=== PATIENT | male | born 1975 | race Caucasian/White ===

== ENCOUNTER 2018-05-26 09:03 | Observation (INO) | payer BC, MEDICARE ==
[2018-05-26] VITALS (10 sets, daily range): BP systolic 128–161; BP diastolic 81–103
[~2018-05-26] VITALS: Ht 167.6 cm; Wt 95.3 kg
[~2018-05-26 09:03] MED LIST: ADAL40PE SQ; ASPI-482 PO; CHOL500016 PO; ISOM1CAP9 PO; IV RINGERS,LACTATED 1000ML 1,000 ML IV SCH; LEVO40CA PO; LIDOCAINE 1% PF 2 ML VIAL. ID PRN; MORP30CA13 PO; MULT-208 PO; OLAN5TAB9 PO; OMEP40CA5 PO; ONDANSETRON PF 4 MG/2 ML VIAL. IV PRN; PROCHLORPERAZINE 10 MG/2 ML VIAL. IV PRN; SERT100T8 PO; TOPI50TA8 PO; fentaNYL PF VIAL 100 MCG/2 ML VIAL IV PRN
[2018-05-26] MEDS ORDERED: DEXAMETHASONE SOD PHOS 20 MG/5 ML VIAL. ONE (10:09)
[2018-05-26] MEDS ORDERED: FAMOTIDINE 20 MG/2 ML VIAL ONE (10:09)
[2018-05-26] MEDS ORDERED: ONDANSETRON PF 4 MG/2 ML VIAL. ONE (10:09)
[2018-05-26] MEDS ORDERED: LIDOCAINE 2% PF Vial for OR 5 ML VIAL. ONE (10:09)
[2018-05-26] MEDS ORDERED: PROPOFOL 20 ML IV ONE (10:09)
[2018-05-26] MEDS ORDERED: MIDAZOLAM HCL/PF 2 MG/2 ML VIAL. ONE (10:11)
[2018-05-26] MEDS ORDERED: ROCURONIUM 50 MG/5 ML VIAL. ONE (10:11)
[2018-05-26] MEDS ORDERED: fentaNYL PF VIAL 100 MCG/2 ML VIAL ONE ×4 (10:11→14:09)
[2018-05-26] MEDS ORDERED: IOHEXOL 300 MG/ML 100ML VIAL. ONE (10:57)
[2018-05-26] MEDS ORDERED: SURGICEL HEMOSTAT 4X8 EACH. ONE ×2 (10:57→12:00)
[2018-05-26] MEDS ORDERED: BUPIVACAINE-EPI 0.5%-1:200000 50 ML VIAL. ONE (10:58)
[2018-05-26] MEDS ORDERED: BUPIVAC MPF-EPI 0.5%-1:200000 30 ML VIAL. INJ ONE (11:45)
[2018-05-26] MEDS ORDERED: SURGICEL HEMOSTAT 4X8 EACH. TP ONE ×3 (11:50→12:45)
--- NOTE | 2018-05-26 12:32 | RAD ---
Fluoroscopic intraoperative cholangiogram: 2017 CLINICAL INDICATION: Intraoperative cholangiogram, cholecystectomy. COMPARISON: Ultrasound 09/25/2017 Findings/technique: Total fluoroscopy time 28 seconds. Total fluoroscopic images 3. A radiologist not present for the examination. There is opacification of the central intra and extrahepatic biliary system as well as the 2nd portion of the duodenum without evidence of biliary ductal dilatation or intraluminal filling defect to suggest choledocholithiasis. IMPRESSION: Intraoperative cholangiogram, as detailed. Electronically signed by: Cornel Nesbitt MD (05/26/2018 12:29 PM) [id number]
[2018-05-26] MEDS ORDERED: NEOSTIGMINE METHYLSULFATE 5 MG/5 ML SYRINGE. ONE (12:38)
[2018-05-26] MEDS ORDERED: GLYCOPYRROLATE 1 MG/5 ML VIAL. ONE (12:38)
[2018-05-26] MEDS ORDERED: DESFLURANE 61 TO 120 MINUTES IH ONE (12:52)
[2018-05-26] MEDS: IV 1/2 NORMAL SALINE 1,000 ML IV SCH ×2 (13:04→20:09)
[2018-05-26] MEDS ORDERED: oxyCODONE/APAP 5/325 1 TAB TABLET PO PRN (13:15)
[2018-05-26] MEDS ORDERED: DEXTROSE 50% 25 GM / 50ML DISP.SYRIN. IV PRN (13:15)
[2018-05-26] MEDS ORDERED: 0.9 % SODIUM CHLORIDE 10 ML DISP.SYRIN. IV PRN (13:15)
[2018-05-26] MEDS ORDERED: ONDANSETRON PF 4 MG/2 ML VIAL. IV PRN (13:15)
[2018-05-26] MEDS ORDERED: fentaNYL PF VIAL 100 MCG/2 ML VIAL IV PRN ×2 (13:15)
--- NOTE | 2018-05-26 13:16 | PDOC4 ---
Operative Note Operative Note Operative Note: Preoperative Diagnosis: Biliary dyskinesia Postoperative Diagnosis: Same Procedure: Laparoscopic cholecystectomy with intraoperative cholangiogram Surgeons: Karson Anesthesia: Gen. Estimated Blood Loss: 100 mL Specimen: Gallbladder to pathology Drains: None Complications: None Indications: The patient is a 43-year-old male who underwent evaluation due to chronic episodes of abdominal pain and pancreatitis. His evaluation included a PIPIDA scan which showed prompt symptom reproduction with Kinevac injection suggestive of biliary dyskinesia. Surgical treatment was offered by means of a laparoscopic cholecystectomy. The risks of surgery were discussed which include bleeding, infection, bile duct injury, bile leak, pain, the potential for additional surgeries or procedures. The patient understands and would like to proceed. Description: The patient was taken to the operating room and laid supine on the operating table. General anesthesia was performed. The abdomen was prepped with ChloraPrep and draped in a standard surgical fashion. A small incision was made in the right upper quadrant through which a visualized 5 mm trocar was inserted. A pneumoperitoneum was created and the laparoscope was introduced. Initial inspection showed no visceral injury or bleeding. The abdominal wall showed minimal adhesions. Another 5 mm trocar was placed near the umbilicus and the laparoscope was relocated to the port. In the upper midabdomen an 11mm trocar was inserted and in the right upper one 2.3 mm mini lap grasper was inserted. The gallbladder was retracted cephalad. The patient had very prominent fatty infiltration of the liver leading to a nearly intrahepatic effect on the gallbladder. In addition along the left border of the gallbladder there appeared to be a liver lesion consistent with a hemangioma that had been seen previously on MRI. This made however exposure difficult along the inferior aspect. Another 5 mm trocar was placed to help with retraction and improve exposure. The cystic duct was dissected free from surrounding tissues. One clip was placed on the duct near the gallbladder junction. An opening was made in the duct and a cholangiocatheter placed within and secured with a clip. Using contrast dye and fluoroscopy an intraoperative cholangiogram was performed that appeared unremarkable. The clip and catheter were then withdrawn. Three clips were placed on the cystic duct and it was divided. We began slowly mobilizing the gallbladder from the liver and it was quite friable. We searched for a well-defined cystic artery however none was clearly identified. He seemed to instead have multiple small vessels feeding the gallbladder which were easily cauterized. The gallbladder was mobilized away from the liver with cautery. A Surgicel pack was placed on the gallbladder fossa to assist with any oozing. The gallbladder was then placed in an endoscopic bag and extracted at the superior trocar site. The fascia there was closed with an 0 Vicryl suture. All blood and irrigation fluid was suctioned and hemostasis was good. The remaining ports were removed and the pneumoperitoneum was relieved. The skin incisions were closed using 4- 0 Monocryl suture. Steri-Strips and dressings were then applied. The patient tolerated the procedure well and was sent to the recovery room in stable condition. At the end of the case all counts were correct. MARIAMA ANTUNEZ MD May 26, 2018 13:16
[2018-05-26] MEDS ORDERED: [UNRECOGNIZED DRUG - OTHER] PO PRN (13:30)
[2018-05-26] MEDS ORDERED: DICHLPHN PO PRN (13:30)
[2018-05-26] MEDS ORDERED: ISOMETHEPT PO PRN (13:30)
[2018-05-26] MEDS ORDERED: ACETAMINOP PO PRN (13:30)
[2018-05-26] MEDS ORDERED: OLANZapine 5 MG TABLET PO SCH ×2 (13:45→21:00)
[2018-05-26] MEDS: fentaNYL PF VIAL 100 MCG/2 ML VIAL IV PRN ×4 (13:55→14:49)
[2018-05-26] MEDS: CHOLECALCIFEROL (VITAMIN D3) 5,000 UNIT CAPSULE PO SCH (14:00)
[2018-05-26] MEDS: MULTIVITAMIN with MINERAL TABLET. PO SCH (14:00)
[2018-05-26] MEDS ORDERED: TOPIRAMATE 25 MG TABLET. PO SCH (14:00)
[2018-05-26] MEDS: PANTOPRAZOLE 40 MG TABLET.DR. PO SCH (15:28)
[2018-05-26] MEDS: KETOROLAC 15 MG/ML VIAL. IV PRN (20:01)
[2018-05-26] MEDS: TOPIRAMATE 25 MG TABLET. PO SCH (20:02)
[2018-05-26] MEDS ORDERED: SERTRALINE 50 MG TABLET. PO SCH (21:00)
[2018-05-26] MEDS: oxyCODONE/APAP 5/325 1 TAB TABLET PO PRN (23:06)
[2018-05-27 03:00] VITALS: BP 123/76
[2018-05-27] MEDS: oxyCODONE/APAP 5/325 1 TAB TABLET PO PRN ×3 (03:48→12:13)
[2018-05-27 03:50] LABS: BASO # 0.1 x10^3/uL (0.0-0.2); BASO % 1 % (0-3); EOS % 0 % (0-3); HEMATOCRIT 40.4 % (39.0-53.0); HEMOGLOBIN 13.7 g/dL (13.0-17.5); LYMPH # 2.7 x10^3/uL (1.0-4.8); LYMPH % 12 % (24-48); MEAN CORPUSCULAR HEMOGLOBIN 32 pg (25-35); MEAN CORPUSCULAR HGB CONC 34 g/dL (31-37); MEAN CORPUSCULAR VOLUME 93 fL (79-100); MONO # 0.9 x10^3/uL (0.0-1.1); MONO % 4 % (0-9); NEUT # 18.5 x10^3uL (1.8-7.7); NEUT % 83 % (31-73); PLATELET COUNT 267 x10^3/uL (140-400); RED BLOOD COUNT 4.35 x10^6/uL (4.30-5.70); RED CELL DISTRIBUTION WIDTH 14.2 % (11.5-14.5); WHITE BLOOD COUNT 22.2 x10^3/uL (4.0-11.0)
[2018-05-27 04:43] LABS: % BANDS 4 % (0-9); % LYMPHS 10 % (24-48); % MONOS 4 % (0-10); % SEGS 82 % (35-66); PLT ESTIMATE ADEQUATE (ADEQUATE)
[2018-05-27 07:00] VITALS: BP 103/64
[2018-05-27] MEDS: KETOROLAC 15 MG/ML VIAL. IV PRN (07:23)
--- NOTE | 2018-05-27 08:07 | PDOC ---
SAJAN PEDROZA [employer] ROOM OPERATOR 05/27/18 0807: SURGICAL PROGRESS NOTE Subjective tolerated breakfast not ambulating much yet + urination incisional pain Vital Signs Vital Signs Date Time Temp Pulse Resp B/P (MAP) Pulse Ox O2 Delivery O2 Flow Rate FiO2 05/27/18 05:01 Nasal Cannula 2.0 05/27/18 03:00 97.9 113 18 123/76 (92) 97 97.9 I&O Intake and Output 05/27/18 07:00 Intake Total 1550 ml Output Total 2650 ml Balance -1100 ml Intake Oral 0 ml IV Total 1550 ml Output Urine Total 2550 ml Estimated Blood Loss 100 ml General: Alert, Oriented X3, Cooperative, No acute distress Abdomen: Soft, Other (dressings dry ) Labs Laboratory Tests Test 05/27/18 03:15 White Blood Count 22.2 x10^3/uL (4.0-11.0) Red Blood Count 4.35 x10^6/uL (4.30-5.70) Hemoglobin 13.7 g/dL (13.0-17.5) Hematocrit 40.4 % (39.0-53.0) Mean Corpuscular Volume 93 fL (79-100) Mean Corpuscular Hemoglobin 32 pg (25-35) Mean Corpuscular Hemoglobin Concent 34 g/dL (31-37) Red Cell Distribution Width 14.2 % (11.5-14.5) Platelet Count 267 x10^3/uL (140-400) Neutrophils (%) (Auto) 83 % (31-73) Lymphocytes (%) (Auto) 12 % (24-48) Monocytes (%) (Auto) 4 % (0-9) Eosinophils (%) (Auto) 0 % (0-3) Basophils (%) (Auto) 1 % (0-3) Neutrophils # (Auto) 18.5 x10^3uL (1.8-7.7) Lymphocytes # (Auto) 2.7 x10^3/uL (1.0-4.8) Monocytes # (Auto) 0.9 x10^3/uL (0.0-1.1) Eosinophils # (Auto) 0.0 x10^3/uL (0.0-0.7) Basophils # (Auto) 0.1 x10^3/uL (0.0-0.2) Segmented Neutrophils % 82 % (35-66) Band Neutrophils % 4 % (0-9) Lymphocytes % 10 % (24-48) Monocytes % 4 % (0-10) Platelet Estimate Adequate (ADEQUATE) Laboratory Tests Test 05/27/18 03:15 White Blood Count 22.2 x10^3/uL (4.0-11.0) Red Blood Count 4.35 x10^6/uL (4.30-5.70) Hemoglobin 13.7 g/dL (13.0-17.5) Hematocrit 40.4 % (39.0-53.0) Mean Corpuscular Volume 93 fL (79-100) Mean Corpuscular Hemoglobin 32 pg (25-35) Mean Corpuscular Hemoglobin Concent 34 g/dL (31-37) Red Cell Distribution Width 14.2 % (11.5-14.5) Platelet Count 267 x10^3/uL (140-400) Neutrophils (%) (Auto) 83 % (31-73) Lymphocytes (%) (Auto) 12 % (24-48) Monocytes (%) (Auto) 4 % (0-9) Eosinophils (%) (Auto) 0 % (0-3) Basophils (%) (Auto) 1 % (0-3) Neutrophils # (Auto) 18.5 x10^3uL (1.8-7.7) Lymphocytes # (Auto) 2.7 x10^3/uL (1.0-4.8) Monocytes # (Auto) 0.9 x10^3/uL (0.0-1.1) Eosinophils # (Auto) 0.0 x10^3/uL (0.0-0.7) Basophils # (Auto) 0.1 x10^3/uL (0.0-0.2) Segmented Neutrophils % 82 % (35-66) Band Neutrophils % 4 % (0-9) Lymphocytes % 10 % (24-48) Monocytes % 4 % (0-10) Platelet Estimate Adequate (ADEQUATE) Problem List s/p lap neri increase activity plan dc after lunch MARIAMA ANTUNEZ MD 05/27/18 0942: SURGICAL PROGRESS NOTE Assessment/Plan Agree with above, Hb stable, WBC likely reactive NICKELSAJAN L [employer] ROOM OPERATOR May 27, 2018 08:07 MARIAMA ANTUNEZ MD May 27, 2018 09:42
[2018-05-27] MEDS ORDERED: OXYC1TAB7 PO (08:09)
--- NOTE | 2018-05-27 08:11 | DISCH ---
DISCHARGE INSTRUCTIONS Condition on Discharge Condition on Discharge: Stable Activity After Discharge Activity Instructions for Disc: Activity as tolerated Lifting Instructions after Dis: No heavy lifting (x 2 weeks, nothing over 20 lbs), No pulling or pushing Driving Instructions after Dis: Do not drive today Weight Bearing Status after Di: No restrictions Diet after Discharge Diet after Discharge: Low Fat Diet Texture: Regular Liquid Texture: Thin Liquid Wound Incision Care Wound/Incision Care: May get incision wet, No wound care needed Contacting the DRYuan after DC Call your doctor for: Concerns you may have Follow-Up Follow up with: Dr Ty 2 weeks, call to schedule [phone] SAJAN PEDROZA APRN May 27, 2018 08:11
--- NOTE | 2018-05-27 08:13 | PDOC3 ---
Discharge Summary Visit Information Date of Admission: May 26, 2018 Date of Discharge: May 27, 2018 Admitting Diagnosis: Biliary dyskinesia Final Diagnosis Biliary dyskinesia Brief Hospital Course Allergies Allergies Coded Allergies Type Severity Reaction Last Updated Verified cephalexin Allergy Intermediate Rash 05/23/18 Yes codeine Adverse Reaction Unknown MIGRAINE HEADACHE (TYLENOL W/ CODEINE) Yes morphine Adverse Reaction Unknown NAUSEA/VOMITING 05/23/18 Yes Vital Signs Vital Signs Date Time Temp Pulse Resp B/P (MAP) Pulse Ox O2 Delivery O2 Flow Rate FiO2 05/27/18 05:01 Nasal Cannula 2.0 05/27/18 03:00 97.9 113 18 123/76 (92) 97 97.9 Lab Results Laboratory Tests Test 05/27/18 03:15 White Blood Count 22.2 x10^3/uL (4.0-11.0) Red Blood Count 4.35 x10^6/uL (4.30-5.70) Hemoglobin 13.7 g/dL (13.0-17.5) Hematocrit 40.4 % (39.0-53.0) Mean Corpuscular Volume 93 fL (79-100) Mean Corpuscular Hemoglobin 32 pg (25-35) Mean Corpuscular Hemoglobin Concent 34 g/dL (31-37) Red Cell Distribution Width 14.2 % (11.5-14.5) Platelet Count 267 x10^3/uL (140-400) Neutrophils (%) (Auto) 83 % (31-73) Lymphocytes (%) (Auto) 12 % (24-48) Monocytes (%) (Auto) 4 % (0-9) Eosinophils (%) (Auto) 0 % (0-3) Basophils (%) (Auto) 1 % (0-3) Neutrophils # (Auto) 18.5 x10^3uL (1.8-7.7) Lymphocytes # (Auto) 2.7 x10^3/uL (1.0-4.8) Monocytes # (Auto) 0.9 x10^3/uL (0.0-1.1) Eosinophils # (Auto) 0.0 x10^3/uL (0.0-0.7) Basophils # (Auto) 0.1 x10^3/uL (0.0-0.2) Segmented Neutrophils % 82 % (35-66) Band Neutrophils % 4 % (0-9) Lymphocytes % 10 % (24-48) Monocytes % 4 % (0-10) Platelet Estimate Adequate (ADEQUATE) Laboratory Tests Test 05/27/18 03:15 White Blood Count 22.2 x10^3/uL (4.0-11.0) Red Blood Count 4.35 x10^6/uL (4.30-5.70) Hemoglobin 13.7 g/dL (13.0-17.5) Hematocrit 40.4 % (39.0-53.0) Mean Corpuscular Volume 93 fL (79-100) Mean Corpuscular Hemoglobin 32 pg (25-35) Mean Corpuscular Hemoglobin Concent 34 g/dL (31-37) Red Cell Distribution Width 14.2 % (11.5-14.5) Platelet Count 267 x10^3/uL (140-400) Neutrophils (%) (Auto) 83 % (31-73) Lymphocytes (%) (Auto) 12 % (24-48) Monocytes (%) (Auto) 4 % (0-9) Eosinophils (%) (Auto) 0 % (0-3) Basophils (%) (Auto) 1 % (0-3) Neutrophils # (Auto) 18.5 x10^3uL (1.8-7.7) Lymphocytes # (Auto) 2.7 x10^3/uL (1.0-4.8) Monocytes # (Auto) 0.9 x10^3/uL (0.0-1.1) Eosinophils # (Auto) 0.0 x10^3/uL (0.0-0.7) Basophils # (Auto) 0.1 x10^3/uL (0.0-0.2) Segmented Neutrophils % 82 % (35-66) Band Neutrophils % 4 % (0-9) Lymphocytes % 10 % (24-48) Monocytes % 4 % (0-10) Platelet Estimate Adequate (ADEQUATE) Brief Hospital Course Mr. Dorantes is a 43 old male who presented with Biliary dyskinesia. Underwent laparoscopic cholecystectomy, postoperatively tolerating diet, ambulating, and pain managed. Ready for discharge home Discharge Information Condition at Discharge: Stable Follow Up: Weeks (2) Disposition/Orders: D/C to Home Scheduled Adalimumab (Humira) 40 Mg/0.8 Ml Pen.ij.kit, 40 MG SQ Q2WKS, (Reported) Entered as Reported by: Herman Leonard RN on 09/22/172005 Last Taken: Unknown Dose on 05/24/18 Last Action: HELD on 05/26/181316 by MARIAMA ANTUNEZ Aspirin (Aspir 81) 81 Mg Tablet.dr, 1 TAB PO DAILY, #30 Ref 5 (Reported) Entered as Reported by: LUIS MONTOYA on 07/16/14 1033 Last Taken: Unknown Dose on 05/19/18 Last Action: HELD on 05/26/181316 by MARIAMA ANTUNEZ Cholecalciferol (Vitamin D3) (Vitamin D3) 5,000 Unit Tablet, 1 TAB PO DAILY, #30 (Reported) Entered as Reported by: LUIS MONTOYA on 07/16/14 103 Last Taken: Unknown Dose on 05/25/18 Last Action: Converted on 05/26/181316 by MARIAMA ANTUNEZ Multivitamin (Multi-Day Vitamins) 1 Each Tablet, 1 TAB PO DAILY, #30 (Reported) Entered as Reported by: LUIS MONTOYA on 07/16/14 1031 Last Taken: Unknown Dose on 05/23/18 Last Action: Converted on 05/26/181316 by MARIAMA ANTUNEZ Olanzapine (Olanzapine) 5 Mg Tablet, 15 MG PO DAILY for BIPOLAR, (Reported) Entered as Reported by: LUIS MONTOYA on 07/16/14 1034 Last Taken: Unknown Dose on 05/25/18 Last Action: Converted on 05/26/181316 by MARIAMA ANTUNEZ Omeprazole (Omeprazole) 40 Mg Capsule.dr, 1 CAP PO DAILY, #30 Ref 3 (Reported) Entered as Reported by: LUIS MONTOYA on 07/16/14 1032 Last Taken: Unknown Dose on 05/25/18 Last Action: Converted on 05/26/181316 by MARIAMA ANTUNEZ Sertraline Hcl (Sertraline Hcl) 100 Mg Tablet, 100 MG PO QHS for ANTI-DEPRESSANT , Ref 0 (Reported) Entered as Reported by: Herman Leonard RN on 09/22/172005 Last Taken: Unknown Dose on 05/25/18 Last Action: Converted on 05/26/181316 by MARIAMA ANTUNEZ Topiramate (Topiramate) 50 Mg Tablet, 1 TAB PO DAILY for BIPOLAR, #60 Ref 1 ( Reported) Entered as Reported by: LUIS CASTROLLISTER on 07/16/14 1033 Last Taken: Unknown Dose on 05/25/18 Last Action: Converted on 05/26/181316 by MARIAMA ANTUNEZ Scheduled PRN Isomethept/Dichlphn/Acetaminop (Dxpcsshguf-Vvrxekchfd-Rxrkiyxc) 1 Each Capsule, 2 EACH PO PRN DAILY PRN for MIGRAINE HEADACHE, (Reported) Entered as Reported by: Herman Leonard RN on 09/22/172005 Last Taken: Unknown Dose on Unknown Date & Time Last Action: Converted on 05/26/181316 by MARIAMA ANTUNEZ Oxycodone Hcl/Acetaminophen (Oxycodone-Acetaminophen 5-325) 1 Each Tablet, 1 TAB PO PRN Q4HRS PRN for MILD PAIN, 1ST CHOICE, #30 Ref 0 Prescribed by: Sajan Gardiner on 05/27/18 0809 SAJAN GARDINER APRN May 27, 2018 08:13 MARIAMA ANTUNEZ MD May 27, 2018 09:42
[2018-05-27] MEDS: CHOLECALCIFEROL (VITAMIN D3) 5,000 UNIT CAPSULE PO SCH (08:57)
[2018-05-27] MEDS: TOPIRAMATE 25 MG TABLET. PO SCH (08:57)
[2018-05-27] MEDS: MULTIVITAMIN with MINERAL TABLET. PO SCH (08:57)
[2018-05-27] MEDS: PANTOPRAZOLE 40 MG TABLET.DR. PO SCH (08:58)
[2018-05-27 11:00] VITALS: BP 117/63
--- NOTE | 2018-05-27 18:07 | PATHOLOGY ---
[facility] Accession Number: [id number] . 01 Material submitted: . GALLBLADDER . 01 Clinical history: . Biliary dyskinesia . 02 Diagnosis: Gallbladder, laparoscopic cholecystectomy: - Chronic cholecystitis. ([facility]; 05/27/2018) QMS/05/27/2018 . 02 Comment: There are no calculi identified within the gallbladder lumen or specimen container. There is no evidence of malignancy. ([facility]; 05/27/2018) . 02 Electronically signed: . Madi Sánchez MD, Pathologist NPI- [id number] . 01 Gross description: . The specimen is received in formalin, labeled "Farhad DorantesGabrieleGeoff, gallbladder", is an intact gallbladder measuring 6.0 x 2.0 x 1.0 cm with wrinkled, diaz-purple serosa. The lumen is filled with yellow-diaz viscous bile, and no discrete calculi are identified. The mucosa is diaz-brown granular and the wall measures up to 0.1 cm thick. No discrete masses are identified. [employer] tissue is submitted in A1. ([facility]; 05/26/2018) SHS/SHS . 02 Pathologist provided ICD-10: K81.1 . 02 CPT . 323348 Specimen Comment: A courtesy copy of this report has been sent to Specimen Comment: [phone], . Specimen Comment: Report sent to / DR ESCOBEDO Performed at: 01 [facility] [address], [place] [id number] MD Rodrick Drew MD Phone: [phone] Performed at: 02 [facility] [address] [place], [place] [id number] MD Madi Sánchez MD Phone: [phone]
== END 2018-05-27 13:00 | disposition home or self-care (01) ==
LOC: SURG 09:03 → OBSVTOIN 13:33 → INTOOBSV 13:33 → 4 NORTH 13:33 → UNDODISOB 05-27 13:00
PROVIDERS: ADMIT Surgery; ATTEND Surgery
DX: K82.8 Other specified diseases of gallbladder (principal); K76.0 Fatty (change of) liver, not elsewhere classified; Z88.8 Allergy status to other drugs, medicaments and biological substances
CPT/HCPCS: 36415; 47563; 74300; 85007; 85025; 88304; 96374; 96375; 96376; A7015; G0378; G0379; J1100; J1885; J1956; J2001; J2250; J2405; J2704; J2710; J3010; J3490; J7030; J7120; Q9967

== ENCOUNTER 2018-11-14 18:57 | Emergency (ER) | payer BC, MEDICARE ==
[~2018-11-14] VITALS: Ht 167.6 cm; Wt 87.5 kg
[~2018-11-14 18:57] MED LIST changes: -IV RINGERS,LACTATED 1000ML 1,000 ML IV SCH; -LIDOCAINE 1% PF 2 ML VIAL. ID PRN; -ONDANSETRON PF 4 MG/2 ML VIAL. IV PRN; +OXYC1TAB7 PO; -PROCHLORPERAZINE 10 MG/2 ML VIAL. IV PRN; -fentaNYL PF VIAL 100 MCG/2 ML VIAL IV PRN
[2018-11-14 19:16] VITALS: BP 107/58
[2018-11-14] MEDS ORDERED: IV NORMAL SALINE 1000ML BAG 1,000 ML IV SCH (19:26)
[2018-11-14 19:38] LABS: BILIRUBIN,URINE NEGATIVE (NEG); CLARITY,URINE CLEAR; COLOR,URINE YELLOW; NITRITE,URINE NEGATIVE (NEG); PH,URINE 5.5; PROTEIN,URINE NEGATIVE (NEG-TRACE)
[2018-11-14 19:44] LABS: BARBITURATES NEG (NEG); BENZODIAZEPINES NEG (NEG); CANNABINOIDS NEG (NEG); COCAINE NEG (NEG); METHADONE NEG (NEG); OPIATES NEG (NEG); PHENCYCLIDINE NEG (NEG)
[2018-11-14 19:48] LABS: AMPHETAMINE/METHAMPHETAMINE NEG (NEG)
[2018-11-14 19:50] LABS: GRANULAR CASTS,URINE OCCASIONAL /HPF; HYALINE CASTS, URINE MODERATE /HPF; SQUAMOUS EPITHELIAL CELL,UR FEW /LPF
--- NOTE | 2018-11-14 19:50 | PHYS DOC ---
Past Medical History Past Medical History: Diabetes-Type II, Pancreatitis Additional Past Medical Histor: Chandrakant Past Surgical History: Appendectomy, Cholecystectomy Additional Past Surgical Histo: right wrist surg, left knee surg with metal Adult General Chief Complaint Chief Complaint: ABDOMINAL PAIN [facility] HPI Patient is a 43 year old male who presents with complaining of abdominal pain. Patient states he has had history of pancreatitis with 4 other episodes of pancreatitis and thinks he has another episode of pancreatitis. Patient complaining of left lower quadrant sharp pain as a constant pain for the last 10 days that gradually getting worse. Patient said the pain was 7 and increased to 10 over 10 today. Patient complaining of 3 episodes of nonbloody diarrhea today and 4 episodes of diarrhea yesterday. Patient complaining of anorexia without fever and chills, urinary symptoms, chest pain, shortness of breath, nausea and vomiting. Patient complaining of generalized weakness and dizziness with standin g up. Patient states he didn't take any pain medication for the last 10 days. Review of Systems Review of Systems Constitutional: Denies fever or chills [] Eyes: Denies change in visual acuity, redness, or eye pain [] HENT: Denies nasal congestion or sore throat [] Respiratory: Denies cough or shortness of breath [] Cardiovascular: No additional information not addressed in HPI [] GI: Reports abdominal pain, diarrhea, denies nausea and vomiting [] : Denies dysuria or hematuria [] Musculoskeletal: Denies back pain or joint pain [] Integument: Denies rash or skin lesions [] Neurologic: Denies headache, focal weakness or sensory changes [] Endocrine: Denies polyuria or polydipsia [] All other systems were reviewed and found to be within normal limits, except as documented in this note. Current Medications Current Medications Current Medications Medications (Trade) Dose Ordered Sig/Jutsa Start Time Stop Time Status Last Admin Dose Admin Ketorolac Tromethamine (Toradol 30mg Vial) 30 mg 1X ONCE 11/14/18 20:00 11/14/18 20:01 DC 11/14/18 19:57 30 MG Sodium Chloride 1,000 ml @ 1,000 mls/hr Q1H 11/14/18 19:26 11/14/18 20:25 DC 11/14/18 19:57 1,000 MLS/HR Allergies Allergies Allergies Coded Allergies Type Severity Reaction Last Updated Verified cephalexin Allergy Intermediate Rash 05/23/18 Yes codeine Adverse Reaction Unknown MIGRAINE HEADACHE (TYLENOL W/ CODEINE) 05/23/18 Yes morphine Adverse Reaction Unknown NAUSEA/VOMITING 05/23/18 Yes Physical Exam Physical Exam Constitutional: Well nourished, mild distress, non-toxic appearance. [] HENT: Normocephalic, atraumatic, oropharynx moist. Eyes: PERRLA, EOMI, conjunctiva normal, no discharge. [] Neck: Normal range of motion, no tenderness, supple, no stridor. [] Cardiovascular:Heart rate regular rhythm, no murmur [] Lungs & Thorax: Bilateral breath sounds clear to auscultation [] Abdomen: Bowel sounds normal, soft, no tenderness, no masses, no pulsatile masses. [] Skin: Warm, dry, no erythema, no rash. [] Back: No tenderness, no CVA tenderness. [] Extremities: No tenderness, no cyanosis, no clubbing, ROM intact, no edema. [] Neurologic: Alert and oriented X 3, normal motor function, normal sensory function, no focal deficits noted. [] Psychologic: Affect normal, judgement normal, mood normal. [] Current Patient Data Vital Signs Vital Signs Date Time Temp Pulse Resp B/P (MAP) Pulse Ox O2 Delivery O2 Flow Rate FiO2 11/14/18 19:16 98.2 92 20 107/58 (74) 98 Room Air 98.2 Lab Values Laboratory Tests Test 11/14/18 19:12 11/14/18 20:30 Urine Collection Type Unknown Urine Color Yellow Urine Clarity Clear Urine pH 5.5 Urine Specific [place] 1.015 Urine Protein Negative mg/dL (NEG-TRACE) Urine Glucose (UA) 500 mg/dL (NEG) Urine Ketones (Stick) Negative mg/dL (NEG) Urine Blood Negative (NEG) Urine Nitrite Negative (NEG) Urine Bilirubin Negative (NEG) Urine Urobilinogen Dipstick 1.0 mg/dL (0.2 mg/dL) Urine Leukocyte Esterase Negative (NEG) Urine RBC 1-2 /HPF (0-2) Urine WBC 1-4 /HPF (0-4) Urine Squamous Epithelial Cells Few /LPF Urine Transitional Epithelial Cells Few /LPF Urine Bacteria 0 /HPF (0-FEW) Urine Hyaline Casts Moderate /HPF Urine Granular Casts Occasional /HPF Urine Mucus Slight /LPF Urine Opiates Screen Neg (NEG) Urine Methadone Screen Neg (NEG) Urine Barbiturates Neg (NEG) Urine Phencyclidine Screen Neg (NEG) Urine Amphetamine/Methamphetamine Neg (NEG) Urine Benzodiazepines Screen Neg (NEG) Urine Cocaine Screen Neg (NEG) Urine Cannabinoids Screen Neg (NEG) Urine Ethyl Alcohol Neg (NEG) White Blood Count 13.9 x10^3/uL (4.0-11.0) H Red Blood Count 3.90 x10^6/uL (4.30-5.70) L Hemoglobin 11.9 g/dL (13.0-17.5) L Hematocrit 36.4 % (39.0-53.0) L Mean Corpuscular Volume 93 fL (79-100) Mean Corpuscular Hemoglobin 31 pg (25-35) Mean Corpuscular Hemoglobin Concent 33 g/dL (31-37) Red Cell Distribution Width 13.4 % (11.5-14.5) Platelet Count 218 x10^3/uL (140-400) Neutrophils (%) (Auto) 43 % (31-73) Lymphocytes (%) (Auto) 45 % (24-48) Monocytes (%) (Auto) 8 % (0-9) Eosinophils (%) (Auto) 3 % (0-3) Basophils (%) (Auto) 1 % (0-3) Neutrophils # (Auto) 6.0 x10^3uL (1.8-7.7) Lymphocytes # (Auto) 6.2 x10^3/uL (1.0-4.8) H Monocytes # (Auto) 1.1 x10^3/uL (0.0-1.1) Eosinophils # (Auto) 0.4 x10^3/uL (0.0-0.7) Basophils # (Auto) 0.1 x10^3/uL (0.0-0.2) Sodium Level 140 mmol/L (136-145) Potassium Level 4.1 mmol/L (3.5-5.1) Chloride Level 107 mmol/L (98-107) Carbon Dioxide Level 21 mmol/L (21-32) Anion Gap 12 (6-14) Blood Urea Nitrogen 22 mg/dL (8-26) Creatinine 1.7 mg/dL (0.7-1.3) H Estimated GFR (Cockcroft-Gault) 43.8 BUN/Creatinine Ratio 13 (6-20) Glucose Level 100 mg/dL (70-99) H Calcium Level 9.0 mg/dL (8.5-10.1) Total Bilirubin 0.3 mg/dL (0.2-1.0) Aspartate Amino Transferase (AST) 25 U/L (15-37) Alanine Aminotransferase (ALT) 40 U/L (16-63) Alkaline Phosphatase 147 U/L (46-116) H Total Protein 6.8 g/dL (6.4-8.2) Albumin 3.2 g/dL (3.4-5.0) L Albumin/Globulin Ratio 0.9 (1.0-1.7) L Lipase 297 U/L (73-393) Laboratory Tests 11/14/18 20:30 Laboratory Tests 11/14/18 20:30 EKG EKG EKG interpreted by me. EKG at 1923 showed normal sinus rhythm at rate of 86, normal LA and QT intervals, poor R-wave IN anteroseptal leads, no acute ST and T-wave abnormalities. Radiology/Procedures Radiology/Procedures [facility] [address] [place] [address] IMAGING REPORT Signed PATIENT: SABINO POWELL ACCOUNT: [id number] : 1975 LOCATION: ER AGE: 43 SEX: M EXAM STATUS: REG ER ORD. PHYSICIAN: ISABELA DHALIWAL MD REASON: left lower quadrant pain, Crohn's disease and pancreatitis PROCEDURE: CT ABDOMEN PELVIS WO CONTRAST Abdominal and Pelvis CT, Without Contrast: History: Left lower quadrant pain and Crohn's disease and pancreatitis. Comparison: September 07, 2018. Procedure: Axial images are obtained of the abdomen and pelvis, without IV or oral contrast. CT Abdomen without Contrast: Findings: Evaluation of solid organs is limited without contrast. Evaluation of stomach and bowel is limited without oral contrast. The IVC is small and there is multiple collateral veins and a prominent ascites. Liver: Normal. Spleen: Normal. Pancreas: Normal. Adrenal Glands: Normal. Kidneys: Multiple small hemorrhagic cysts seen previously. There is no free air or free fluid. There is no lymphadenopathy. Impression: Please see CT Pelvis without Contrast. End Impression. CT Pelvis without Contrast: Findings: The urinary bladder appears normal. There is no free fluid. There is no lymphadenopathy. There is no pericolonic inflammation identified. The appendix is not seen. Impression: No acute findings. Stable appearance of the abdomen and pelvis. End impression PQRS Compliance Statement: One or more of the following individualized dose reduction techniques were utilized for this examination: 1. Automated exposure control 2. Adjustment of the mA and/or kV according to patient size 3. Use of iterative reconstruction technique Electronically signed by: Madalyn Jj III, MD (11/14/2018 9:53 PM) [facility] DICTATED and SIGNED BY: MADALYN JJ III, MD DATE: 11/14/182152 Course & Med Decision Making Course & Med Decision Making Pertinent Labs and Imaging studies reviewed. (See chart for details) Evaluation of patient in ER showed 43-year-old male patient with history of extensive psychiatric problem and previous episodes of pancreatitis presented with complaining of left lower quadrant pain for 10 days and concern for pancreatitis. Patient had unremarkable physical exam. Labs showed leukocytosis at 13.9 history of chronic leukocytosis. Lipase was remarkable. Patient had chronic anemia and mild elevation of creatinine. CT of abdomen. This did not show acute finding. Patient treated with IV fluid and pain medication and felt better. Patient was informed about this is a and needs to follow up with his primary care physician and taking his Crohn's and diabetes medication. Dragon Disclaimer Dragon Disclaimer This electronic medical record was generated, in whole or in part, using a voice recognition dictation system. Departure Departure Impression: Primary Impression: Left lower quadrant pain Additional Impressions: Leukocytosis Anemia Diabetes mellitus History of Crohn's disease Disposition: HOME, SELF-CARE (at 10:15) Condition: IMPROVED Referrals: JOSE M ESCOBEDO (PCP) Patient Instructions: Abdominal Pain Additional Instructions: Drink plenty of liquids Follow-up with your primary care physician in 3-5 days Return to ER if not getting better Scripts [Percogesic] No Conflict Check 1 TAB PO QID PRN for PAIN, #14 Prov: ISABELA DHALIWAL MD 11/14/18 Problem Qualifiers Additional Impressions: Leukocytosis Leukocytosis type: unspecified Qualified Codes: D72.829 - Elevated white blood cell count, unspecified Anemia Anemia type: unspecified type Qualified Codes: D64.9 - Anemia, unspecified Diabetes mellitus Diabetes mellitus type: type 2 Diabetes mellitus residential insulin use: unspecified systems navigator insulin use status Diabetes mellitus complication status: with unspecified complications Qualified Codes: E11.8 - Type 2 diabetes mellitus with unspecified complications ISABELA DHALIWAL MD Nov 14, 2018 19:50
[2018-11-14 19:51] LABS: BACTERIA,URINE 0 /HPF (0-FEW)
[2018-11-14] MEDS ORDERED: KETOROLAC 30 MG/ML VIAL. IV ONE (20:00)
[2018-11-14 20:39] LABS: BASO # 0.1 x10^3/uL (0.0-0.2); BASO % 1 % (0-3); EOS # 0.4 x10^3/uL (0.0-0.7); EOS % 3 % (0-3); HEMATOCRIT 36.4 % (39.0-53.0); HEMOGLOBIN 11.9 g/dL (13.0-17.5); LYMPH # 6.2 x10^3/uL (1.0-4.8); LYMPH % 45 % (24-48); MEAN CORPUSCULAR HEMOGLOBIN 31 pg (25-35); MEAN CORPUSCULAR HGB CONC 33 g/dL (31-37); MEAN CORPUSCULAR VOLUME 93 fL (79-100); MONO # 1.1 x10^3/uL (0.0-1.1); MONO % 8 % (0-9); NEUT % 43 % (31-73); PLATELET COUNT 218 x10^3/uL (140-400); RED CELL DISTRIBUTION WIDTH 13.4 % (11.5-14.5); WHITE BLOOD COUNT 13.9 x10^3/uL (4.0-11.0)
[2018-11-14 21:11] LABS: CREATININE 1.7 mg/dL (0.7-1.3); GFR 43.8; POTASSIUM 4.1 mmol/L (3.5-5.1)
[2018-11-14 21:17] LABS: ALBUMIN 3.2 g/dL (3.4-5.0); ALBUMIN/GLOBULIN RATIO 0.9 (1.0-1.7); TOTAL BILIRUBIN 0.3 mg/dL (0.2-1.0); TOTAL PROTEIN 6.8 g/dL (6.4-8.2)
--- NOTE | 2018-11-14 21:56 | RAD ---
Abdominal and Pelvis CT, Without Contrast: History: Left lower quadrant pain and Crohn's disease and pancreatitis. Comparison: September 07, 2018. Procedure: Axial images are obtained of the abdomen and pelvis, without IV or oral contrast. CT Abdomen without Contrast: Findings: Evaluation of solid organs is limited without contrast. Evaluation of stomach and bowel is limited without oral contrast. The IVC is small and there is multiple collateral veins and a prominent ascites. Liver: Normal. Spleen: Normal. Pancreas: Normal. Adrenal Glands: Normal. Kidneys: Multiple small hemorrhagic cysts seen previously. There is no free air or free fluid. There is no lymphadenopathy. Impression: Please see CT Pelvis without Contrast. End Impression. CT Pelvis without Contrast: Findings: The urinary bladder appears normal. There is no free fluid. There is no lymphadenopathy. There is no pericolonic inflammation identified. The appendix is not seen. Impression: No acute findings. Stable appearance of the abdomen and pelvis. End impression PQRS Compliance Statement: One or more of the following individualized dose reduction techniques were utilized for this examination: 1. Automated exposure control 2. Adjustment of the mA and/or kV according to patient size 3. Use of iterative reconstruction technique Electronically signed by: Juaquin Abarca III, MD (11/14/2018 9:53 PM) [facility]
[2018-11-14] MEDS ORDERED: Percogesic PO (22:17)
--- NOTE | 2018-11-17 07:57 | EKG ---
[facility] [address] [place] [address] Test Date: 2018-11-14 Test Time: 19:23:11 Pat Name: SABINO POWELL Department: Room: Gender: M [employer]: : 1975 Requested By: ISABELA DHALIWAL Order Number: [id number] Reading MD: Rolo Swann Measurements Intervals [place] Rate: 86 P: 34 CT: 154 QRS: 59 QRSD: 82 T: 14 QT: 360 QTc: 434 Interpretive Statements SINUS RHYTHM NONSPECIFIC ST-T WAVE CHANGES. Electronically Signed On 11-19-2018 12:13:40 CDT by Rolo Swann
[2018-12-09] MEDS ORDERED: OXYC1TAB19 PO (14:04)
== END 2018-11-14 23:05 | disposition home or self-care (01) ==
LOC: ER 18:57
DX: D64.9 Anemia, unspecified (principal); R10.32 Left lower quadrant pain; D72.829 Elevated white blood cell count, unspecified; E11.8 Type 2 diabetes mellitus with unspecified complications; R19.7 Diarrhea, unspecified; R53.1 Weakness; Z90.89 Acquired absence of other organs; Z90.49 Acquired absence of other specified parts of digestive tract; Z88.1 Allergy status to other antibiotic agents; Z88.5 Allergy status to narcotic agent
CPT/HCPCS: 36415; 74176; 80053; 80307; 81001; 82962; 83690; 85025; 93005; 96361; 96374; 99285; J1885; J7030

== ENCOUNTER 2018-12-05 11:30 | Inpatient (IN) | payer BC, MEDICARE ==
[~2018-12-05] VITALS: Ht 167.6 cm; Wt 88.1 kg
[2018-12-05] VITALS (10 sets, daily range): BP systolic 80–99; BP diastolic 42–61
[~2018-12-05 11:30] MED LIST changes: +Percogesic PO
[2018-12-05] MEDS ORDERED: BUSP15TA PO (14:37)
[2018-12-05] MEDS ORDERED: DULO60CA6 PO (14:37)
[2018-12-05] MEDS ORDERED: BIFI4CAP PO (14:37)
[2018-12-05] MEDS ORDERED: METH750T2 PO (14:37)
[2018-12-05] MEDS ORDERED: ADAL40PE SQ (14:37)
[2018-12-05] MEDS ORDERED: ASCO10002 PO (14:37)
[2018-12-05] MEDS ORDERED: PIOG30TA41 PO (14:37)
[2018-12-05] MEDS ORDERED: CANA1TAB7 PO (14:37)
[2018-12-05] MEDS ORDERED: OMEG1CAP27 PO (14:37)
[2018-12-05] MEDS ORDERED: CRESTOR40 MG PO (14:37)
[2018-12-05] MEDS ORDERED: LIPA1CAP8 PO ×2 (14:37)
[2018-12-05] MEDS ORDERED: IV NORMAL SALINE 1000ML BAG 1,000 ML IV ONE ×3 (15:00→23:55)
--- NOTE | 2018-12-05 16:25 | NUR ---
Have attempted brown catheter insertion x1 with patient verbal consent. Patient did not appear to tolerate well (excessive breathing, very tense), procedure was unsuccsessful. Patient relates has pain left to mid abd, and pain in left eye, which he rates both at 9 1/2. Obtaining lab results, will call to Dr Duran and obtain order for pain medication.
[2018-12-05 16:29] LABS: BASO % 0 % (0-3); EOS # 0.4 x10^3/uL (0.0-0.7); EOS % 4 % (0-3); HEMATOCRIT 32.9 % (39.0-53.0); HEMOGLOBIN 10.7 g/dL (13.0-17.5); LYMPH # 3.8 x10^3/uL (1.0-4.8); LYMPH % 34 % (24-48); MEAN CORPUSCULAR HEMOGLOBIN 30 pg (25-35); MEAN CORPUSCULAR HGB CONC 33 g/dL (31-37); MEAN CORPUSCULAR VOLUME 94 fL (79-100); MONO # 0.7 x10^3/uL (0.0-1.1); MONO % 7 % (0-9); NEUT # 6.1 x10^3uL (1.8-7.7); NEUT % 55 % (31-73); PLATELET COUNT 209 x10^3/uL (140-400); RED BLOOD COUNT 3.52 x10^6/uL (4.30-5.70); RED CELL DISTRIBUTION WIDTH 13.6 % (11.5-14.5)
[2018-12-05 16:39] LABS: ALBUMIN 3.8 g/dL (3.4-5.0); CALCIUM 9.2 mg/dL (8.5-10.1); CREATININE 14.1 mg/dL (0.7-1.3); GFR 3.8; TOTAL BILIRUBIN 0.5 mg/dL (0.2-1.0); TOTAL PROTEIN 7.8 g/dL (6.4-8.2)
[2018-12-05 16:42] LABS: POTASSIUM 7.8 mmol/L (3.5-5.1)
[2018-12-05] MEDS ORDERED: IV NORMAL SALINE 1000ML BAG 1,000 ML IV SCH (17:00)
[2018-12-05] MEDS ORDERED: CALCIUM GLUCONATE 1,000 MG in IV DEXTROSE 5% 100ML 100 ML IV ONE (17:00)
[2018-12-05] MEDS ORDERED: INSULIN REGULAR 100 UNIT/ML 3ML VIAL. IV ONE (17:00)
[2018-12-05] MEDS ORDERED: SODIUM BICARB ADULT 8.4% 50 MEQ/50 ML DISP.SYRIN. IV ONE (17:00)
[2018-12-05] MEDS ORDERED: DEXTROSE 50% 25 GM / 50ML DISP.SYRIN. IV ONE (17:00)
[2018-12-05] MEDS: SODIUM POLYSTYRENE SULFONATE 15 GM/60 ML ORAL.SUSP. PO SCH ×2 (18:11→21:05)
[2018-12-05] MEDS: fentaNYL PF VIAL 100 MCG/2 ML VIAL IV PRN (18:33)
--- NOTE | 2018-12-05 18:45 | NUR ---
Patient has been transferred to room 104 per bed, chart with patient. Patient notified his and brother of transfer, and has been given pt "code#" to give to . Patient A&O at transfer, facial expression relaxed.
--- NOTE | 2018-12-05 19:46 | RAD ---
Ultrasound of the abdomen 12/05/2018 CLINICAL HISTORY: Abdominal pain with elevated renal function tests. History of chronic pancreatitis. TECHNIQUE: A real-time ultrasound examination of the abdomen was performed. Multiple images were obtained. FINDINGS: Comparison is made to patient's CT scan of the abdomen and pelvis dated 11/14/2018. The gallbladder is not visualized consistent with a cholecystectomy. The liver is normal in size measuring 15 cm in length. Increased echogenicity of the liver parenchyma is seen consistent with fatty infiltration. The common bile duct measures 3 mm in diameter which is within normal limits. The pancreas is not well-visualized due to overlying bowel gas. The spleen is normal in size measuring 11.3 cm in length. Both kidneys are within normal limits in size measuring 10.2 cm in length. Rounded anechoic structures consistent with cysts are seen involving the right kidney. These measure 1.1 and 2.3 cm in size. No focal abnormality of the left kidney is seen. There is no evidence of hydronephrosis. The abdominal aorta and inferior vena cava are not well visualized due to overlying bowel gas and due to luca patient's large body habitus. No free fluid is seen. Additional ultrasound evaluation of the urinary bladder was performed. The urinary bladder is slightly contracted. No abnormality of the urinary bladder is seen. IMPRESSION: 1. Post cholecystectomy. 2. Fatty infiltration of the liver. 3. Otherwise negative study. Electronically signed by: Johnnie Hernandez MD (12/05/2018 7:43 PM) [facility]
[2018-12-05 20:02] LABS: BILIRUBIN,URINE NEGATIVE (NEG); CLARITY,URINE CLEAR; COLOR,URINE YELLOW; NITRITE,URINE NEGATIVE (NEG); PROTEIN,URINE 30 mg/dL (NEG-TRACE); UROBILINOGEN,URINE 0.2 mg/dL (0.2 mg/dL)
[2018-12-05 20:19] LABS: AMORPHOUS SEDIMENT,UR PRESENT /HPF; BACTERIA,URINE 0 /HPF (0-FEW); SQUAMOUS EPITHELIAL CELL,UR FEW /LPF; WBC,URINE RARE /HPF (0-4)
[2018-12-05 20:20] LABS: HYALINE CASTS, URINE OCCASIONAL /HPF
[2018-12-05] MEDS ORDERED: LACTULOSE 20 GM/30 ML SOLUTION. PO ONE (21:00)
[2018-12-05] MEDS: HYDROmorphone 2 MG/ML VIAL IV PRN (21:04)
[2018-12-05] MEDS: SODIUM BICARBONATE VIAL 150 MEQ in IV DEXTROSE 5% 1,000 ML IV SCH (21:50)
[2018-12-05 22:13] LABS: GFR 4.2
[2018-12-05] MEDS ORDERED: TOPI50TA8 PO (23:17)
[2018-12-05] MEDS ORDERED: METH-38 PO (23:17)
[2018-12-05] MEDS ORDERED: OLAN10TA9 PO (23:17)
[2018-12-05] MEDS ORDERED: ASPI-630 PO (23:17)
[2018-12-06] VITALS (37 sets, daily range): BP systolic 68–130; BP diastolic 40–69
[2018-12-06] MEDS: fentaNYL PF VIAL 100 MCG/2 ML VIAL IV PRN ×2 (01:00→09:01)
[2018-12-06] MEDS: HYDROmorphone 2 MG/ML VIAL IV PRN ×4 (03:52→21:29)
[2018-12-06 04:44] LABS: HEMATOCRIT 27.5 % (39.0-53.0); HEMOGLOBIN 9.3 g/dL (13.0-17.5); RED CELL DISTRIBUTION WIDTH 13.8 % (11.5-14.5); WHITE BLOOD COUNT 8.1 x10^3/uL (4.0-11.0)
--- NOTE | 2018-12-06 04:54 | NUR ---
Summary of shift: Patient arrived on unit at 1909. Patient alert and oriented, educated on need to transfer. Simmons catheter placed. Patient complained of pain in abdomen and left eye despite Fentanyl dose. Notified Dr. Duran, updated on patient condition including borderline hypotension, orders received. Consult called to Dr. Kirby who changed MIV fluid orders. Called Dr. Duran again around 2329 regarding continued hypotension, orders received for another fluid bolus and if no improvement, start levophed.
[2018-12-06 05:06] LABS: ALBUMIN 3.1 g/dL (3.4-5.0); ALBUMIN/GLOBULIN RATIO 0.9 (1.0-1.7); CALCIUM 8.8 mg/dL (8.5-10.1); CREATININE 11.2 mg/dL (0.7-1.3); POTASSIUM 4.3 mmol/L (3.5-5.1); TOTAL BILIRUBIN 0.4 mg/dL (0.2-1.0); TOTAL PROTEIN 6.5 g/dL (6.4-8.2)
[2018-12-06] MEDS: NOREPINEPHRIN 8MG/250ML PREMIX 250 ML IV PRN (05:33)
[2018-12-06] MEDS: SODIUM BICARBONATE VIAL 150 MEQ in IV DEXTROSE 5% 1,000 ML IV SCH ×3 (05:34→21:29)
--- NOTE | 2018-12-06 11:10 | HP ---
ADMIT DATE: HISTORY OF PRESENT ILLNESS: The patient is a 43-year-old male patient who was admitted directly yesterday from his primary care physician's office as his lab work showed that he has hyperkalemia and acute kidney injury. In fact, his potassium was 7.8 and creatinine was 14.1 and therefore, he was admitted directly, started on IV line, IV fluid and started medication to bring his potassium down as well as Kayexalate and was transferred eventually to the ICU for close monitoring. The patient stated that he has been having recurrent bouts of nausea, vomiting, generalized aches and pain, has pain also in the left flank area and shortness of breath that has been going on for almost 4 days, started last Saturday. He was seen on at his primary care physician, who ordered some lab work that became available on Saturday, yesterday and according to the findings, he was admitted directly here. On questioning him whether he has any changes in his medication, he denied any new medication; however, he has been taking ibuprofen 600 mg every 6 hours in the last 4 days. PAST MEDICAL HISTORY: Significant for Crohn's disease, gastroesophageal reflux disease, anxiety, depression, migraine headache. He was actually admitted before multiple times at [facility] with acute pancreatitis. PAST SURGICAL HISTORY: Significant for esophagogastroduodenoscopy. He apparently at that time underwent empiric esophageal dilatation. He also underwent colonoscopy with normal colon to the terminal ileum in 11/2014. On EGD in 11/2014, he has a short segment Borja's esophagus, not confirmed with biopsy; however, he was found to have 1 cm esophageal intrinsic stenosis dilated. FAMILY HISTORY: Positive for cancer. SOCIAL HISTORY: He drinks alcohol occasionally, according to him; he does smoke 1 pack a day; does not use any drugs. REVIEW OF SYSTEMS: He did complain of blurring of vision, but denied any glaucoma or macular degeneration. Denied any earache, tinnitus or sensorineural deafness. Denied any nosebleeds, stuffy nose or postnasal drip. Denied any sore throat, sore tongue, toothache, hoarseness of voice or difficulty swallowing. Did complain of recurrent bouts of nausea, vomiting and abdominal pain. He did have a bowel movement. Denied any dysuria, frequency or hematuria. He did complain of shortness of breath, but denied any chest pain. ALLERGIES: He is allergic to CEPHALEXIN, CODEINE and MORPHINE. MEDICATIONS: He is currently on following medications: He is on methocarbamol 750 mg 4 times a day, Crestor 40 mg daily, omega-3 fatty acid fish oil 1 capsule at bedtime, aspirin 81 mg once a day, topiramate 50 mg b.i.d., duloxetine 60 mg at bedtime, olanzapine 15 mg at bedtime, buspirone 15 mg twice a day. He is on Creon 36,000 units, he takes 2 capsules 3 times a day with meals; omeprazole 40 mg daily; bifidobacterium infantis 4 mg at bedtime. He is on Invokamet extended release 150/500 twice a day, pioglitazone 30 mg once a day. He is on ascorbic acid 1000 mg daily, cholecalciferol 5000 international unit once a day, multivitamin 1 tablet once a day and Humira 40 mg in 0.8 mL injection subcutaneously every 2 weeks for his Crohn's disease. PHYSICAL EXAMINATION: GENERAL: On arrival to the hospital yesterday, he was somewhat pale, but no jaundice or cyanosis. No lymphadenopathy, no thyromegaly. No jugular venous distension. No limb edema. VITAL SIGNS: His heart rate was 92, blood pressure was 85/46, temperature was 98.1, respiratory rate was 18 and oxygen saturation was 98%. HEAD, EYES, EARS, NOSE AND THROAT: Showed normocephalic, atraumatic. NECK: Supple. HEART: Showed normal first and second heart sounds. No gallop, rub or murmur. CHEST: Clear to auscultation. No crepitation or rhonchi. ABDOMEN: Distended, soft, mild tenderness in the left lower quadrant. No guarding or rigidity. No organomegaly. All hernial orifices intact. Bowel sounds normal. NEUROLOGIC: He was awake, alert, responding appropriately. All cranial nerves intact. EXTREMITIES: He moves extremities without difficulty. He ambulates without assistance or assistive devices. LABORATORY DATA: On arrival showed a white cell count of 11,000; hemoglobin 10.7; hematocrit 32.3; MCV 94; and platelet count 209,000 with normal manual differential. His chemistry on arrival showed a serum sodium 136, potassium 7.8, chloride 103, bicarbonate 12, anion gap of 21, BUN 115, creatinine was 14.1, estimated GFR was 3.8 mL per minute. His glucose was 84, calcium was 9.2. Total bilirubin, AST, ALT were normal. Alkaline phosphatase slightly elevated. Total protein was 7.8, albumin 3.8 and lipase was 406. His urinalysis showed the urine was yellow, clear with a pH of 5, specific gravity 1.015. There was small amount of protein. The urine was negative for glucose, ketones, there was small amount of blood, negative for nitrite and leukocyte esterase, 3-5 rbc's, rare wbc's, and no bacteria. His toxic screen showed that his blood alcohol level was less than 10. We did order abdominal ultrasound and ultrasound showed both kidneys are within normal limits in size, measuring 10.2 cm in length. There are some rounded anechoic structures consistent with cysts are seen involving the right kidney. These measures 1.2 and 2.3 cm in size. No focal abnormality of the left kidney is seen. There is no evidence of hydronephrosis. The abdominal aorta and inferior vena cava are not well visualized due to overlying bowel gas, and due to the patient's body habitus; however, there is no free fluid. Evaluation of the renal bladder was performed and urinary bladder is slightly contracted. We actually did catheterize him successfully and he was given 10 mL of 10% calcium gluconate, 1 amp of sodium bicarbonate, and then 50 mL of 50% dextrose and 10 units of insulin and was also started on Kayexalate. We did monitor his labs and in fact his serum sodium was 142, potassium 5, chloride 110, bicarbonate 12, anion gap of 20, BUN was 111, creatinine was 13 and we repeated his lab work around 10 last night. He was given at least 2 boluses of normal saline, 5 liters of normal saline continuous at 150. We did consult the laboratory director and apparently he was started on sodium bicarbonate drip. ASSESSMENT AND PLAN: In summary, this is a 43-year-old male patient who was admitted from his primary care physician's office with abnormal lab work showing that he has dangerously high hyperkalemia, acute kidney injury and high anion gap metabolic acidosis. He did have multiple episodes of nausea, vomiting and unfortunately he has been using also ibuprofen 600 mg every 6 hours and thus has the volume depletion and steroids might have come together combined to induce the state of acute renal failure. He was also on Invokana and metformin. He denied any new medication, definitely has no evidence of obstruction, whether he has rhabdomyolysis, obviously that is something that I will check and check his creatine kinase. YOUSUF TAVAREZ MD DR: RUIZ/luis JOB#: [id number] / [id number]
[2018-12-06 14:52] LABS: CALCIUM 8.6 mg/dL (8.5-10.1); CREATININE 8.7 mg/dL (0.7-1.3); GFR 6.7; POTASSIUM 4.1 mmol/L (3.5-5.1)
[2018-12-06] MEDS ORDERED: DEXTROSE 50% 25 GM / 50ML DISP.SYRIN. IV PRN (17:00)
[2018-12-06] MEDS: INSULIN LISPRO 300 UNITS/3 ML INSULN.PEN. SQ SCH (17:48)
--- NOTE | 2018-12-06 22:13 | PN ---
DATE: 12/06/2018 SUBJECTIVE: The patient is resting, slightly propped up in bed, in no apparent distress. He is awake, alert. Continued to complain of pain mostly in his left flank and left lower quadrant area. He had no further episodes of nausea or vomiting. He did have bowel movement as we started him on Kayexalate for his hyperkalemia. He is complaining that he is hungry and would like to eat. PHYSICAL EXAMINATION: GENERAL: When I examined him this morning, he looked somewhat pale, but not jaundiced or cyanosed from thyromegaly. No jugular venous distention. No lower limb edema. VITAL SIGNS: His heart rate was 98, blood pressure was 83/61, temperature was 97.9, respiratory rate was 16 and oxygen saturation was 99% on room air. HEENT: Examination of the head, eyes, ears, nose and throat showed normocephalic, atraumatic. NECK: Supple. HEART: Showed normal first and second heart sounds. No gallop, rub or murmur. CHEST: Clear to auscultation. No crepitation or rhonchi. ABDOMEN: Distended, soft and nontender. There is no guarding or rigidity. No organomegaly. All hernial orifices intact. Bowel sounds normal. NEUROLOGIC: He was awake, alert, responding appropriately. All cranial nerves intact. He moved extremities without difficulty. He does have an indwelling Simmons catheter. His intake over the last 24 hours, he apparently has good urine output; in fact, his intake was 2250, output was 1785. LABORATORY DATA: His lab work this morning showed his white cell count to be 8100, hemoglobin 9.3, hematocrit 37.5, MCV 92 and platelet count of 191,000. His chemistry showed his serum sodium is 145, potassium is down and has normalized to 4.3, chloride 103, bicarbonate 17, anion gap of 20, BUN 96, creatinine was 11.2, his estimated GFR was 5, his glucose was 138 and calcium was 8.8. Total bilirubin, AST and ALT were normal. Alkaline phosphatase slightly elevated. Total protein was 6.5. Albumin was 3.1 and lipase was 369. ASSESSMENT: This is a 43-year-old male patient who was admitted with: 1. Abnormal lab value with hyperkalemia and acute kidney injury as well as high anion gap metabolic acidosis. 2. The patient is known to have Crohn's disease. 3. Recurrent pancreatitis. 4. He has hyperlipidemia. 5. Migraine headache. 6. He has depression. 7. Gastroesophageal reflux disease. 8. Type 2 diabetes mellitus, for which he is on Invokamet as well as pioglitazone. He is on Humira 40 mg subq every 2 weeks for his Crohn's disease. PLAN: My plan is obviously to continue with IV fluids, continue with Levophed to support his blood pressure and continue to monitor his lab work. So far, there is no indication for dialysis as his potassium has normalized and his kidney function is slowly improving. His urine output is improving. I have consulted the vascular nurse. I am reluctant to start any of his medication for the time being. I will check his CK and we will start feeding him, as he is hungry. YOUSUF TAVAREZ MD DR: RUIZ/luis JOB#: [id number] / [id number]
[2018-12-06] MEDS: ONDANSETRON PF 4 MG/2 ML VIAL. IV PRN (23:59)
[2018-12-07] VITALS (24 sets, daily range): BP systolic 86–118; BP diastolic 50–85
--- NOTE | 2018-12-07 00:37 | CONS ---
DATE OF CONSULTATION: 12/06/2018 NEPHROLOGY CONSULTATION REASON FOR CONSULTATION: Renal failure. REQUESTING PHYSICIAN: Dr. Duran. HISTORY OF PRESENT ILLNESS: This is a 43-year-old gentleman who presents to the hospital as directed by his primary care physician due to findings of acute renal failure and hyperkalemia. Creatinine on presentation was 14.1 and potassium 7.8. The patient has, by his report, 1-year history of diabetes mellitus. States his blood sugars are always in the "140s." Otherwise, he has history of Crohn's disease and GE reflux disease. No underlying history of preexisting renal disease. He states he has had no difficulty with urination, nephrolithiasis or gross hematuria. No family history of renal disease. PAST MEDICAL HISTORY: Crohn's disease, GE reflux disease, diabetes mellitus, depression, migraines, acute pancreatitis, esophageal stricture, Borja's esophagus. ALLERGIES: CEPHALEXIN, CODEINE, MORPHINE. MEDICATIONS: Reviewed per medication list. He was taking ibuprofen over the last 6 days prior to admission. FAMILY HISTORY: Noncontributory for renal disease. Notable for cancer. SOCIAL HISTORY: The patient resides independently. He is "disabled." Alcohol use, occasional. Tobacco use, 1 pack per day. REVIEW OF SYSTEMS: No headache, sinus problem, nasal drainage or epistaxis. He has had some blurred vision. No difficulty with swallowing. No chest pain, shortness of breath, PND, orthopnea or dyspnea on exertion. No abdominal pain. He has had recurrent episodes of nausea and vomiting. No diarrhea. No seizures or malignancies. PHYSICAL EXAMINATION: GENERAL APPEARANCE: The patient is awake, conversant. HEENT: Clear. NECK: No increased JVD. No thyromegaly, mass or adenopathy. LUNGS: Clear. CARDIAC: Without S3 or rub. ABDOMEN: Soft, nontender, no bruits. EXTREMITIES: No edema. NEUROLOGIC: Nonfocal. PSYCHIATRIC: Fair attention to detail, appropriate affect. GENITOURINARY: Simmons catheter has been placed with good urine output. Renal ultrasound, no obstructive pathology, specifically no hydronephrosis. LABORATORY DATA: Hemoglobin is 9.3, hematocrit 27.5, white count 8.1, platelets are 191. Electrolytes: Sodium 145, potassium 4.3, chloride 108, CO2 of 17, BUN 96, creatinine 11.2, which is improving. Albumin 3.1, total protein 6.5. Urinalysis, specific gravity 1.015, 30 mg percent protein. IMPRESSION: Renal failure -- acute versus chronic is unclear at this time. He is having improvement. He did have prompt diuresis with Simmons catheter placement. Ultrasound, however, does not reveal evidence of hydronephrosis or hydroureter. May have acute tubular necrosis, also implicated is nonsteroidal anti-inflammatory drug use. RECOMMENDATIONS: 1. IV fluid administration as we are doing. 2. Follow level of azotemia and trend. 3. Renal ultrasound done. 4. A 24-hour urine for total protein. We will follow. KENDALL PALUINO MD DR: YOSEF/luis JOB#: [id number] / [id number]
[2018-12-07 04:24] LABS: HEMATOCRIT 29.2 % (39.0-53.0); HEMOGLOBIN 9.9 g/dL (13.0-17.5); RED BLOOD COUNT 3.25 x10^6/uL (4.30-5.70); RED CELL DISTRIBUTION WIDTH 13.4 % (11.5-14.5); WHITE BLOOD COUNT 11.6 x10^3/uL (4.0-11.0)
[2018-12-07] MEDS: SODIUM BICARBONATE VIAL 150 MEQ in IV DEXTROSE 5% 1,000 ML IV SCH (04:38)
[2018-12-07 04:44] LABS: ALBUMIN 3.3 g/dL (3.4-5.0); ALBUMIN/GLOBULIN RATIO 0.9 (1.0-1.7); CALCIUM 8.8 mg/dL (8.5-10.1); CREATININE 5.3 mg/dL (0.7-1.3); GFR 11.8; TOTAL BILIRUBIN 0.4 mg/dL (0.2-1.0); TOTAL PROTEIN 6.8 g/dL (6.4-8.2)
[2018-12-07 04:50] LABS: POTASSIUM 2.9 mmol/L (3.5-5.1)
[2018-12-07] MEDS: POTASSIUM CHLORIDE 10MEQ 100 ML IV SCH ×7 (05:23→14:03)
[2018-12-07] MEDS: ONDANSETRON PF 4 MG/2 ML VIAL. IV PRN ×2 (05:29→11:17)
[2018-12-07] MEDS: HYDROmorphone 2 MG/ML VIAL IV PRN ×2 (05:29→15:36)
[2018-12-07] MEDS ORDERED: IV DEXTROSE 5 %-0.45 % NACL 1,000 ML IV ONE (08:15)
[2018-12-07] MEDS ORDERED: ELECTROLYTE (ICU) PROTOCOL. MC PRN (08:15)
[2018-12-07] MEDS: IV DEXTROSE 5 %-0.45 % NACL 1,000 ML IV SCH ×2 (09:00→19:10)
[2018-12-07] MEDS: DULoxetine HCL 30 MG CAPSULE.DR PO SCH ×2 (09:00→09:11)
[2018-12-07] MEDS: MULTIVITAMIN with MINERAL TABLET. PO SCH (09:00)
[2018-12-07] MEDS: METHOCARBAMOL 750 MG TABLET PO SCH ×4 (09:00→20:49)
[2018-12-07] MEDS: ASCORBIC ACID 500 MG TABLET PO SCH (09:00)
[2018-12-07] MEDS: TOPIRAMATE 25 MG TABLET. PO SCH ×3 (09:00→20:36)
[2018-12-07] MEDS: CHOLECALCIFEROL (VITAMIN D3) 5,000 UNIT CAPSULE PO SCH (09:00)
[2018-12-07] MEDS: busPIRone 10 MG TABLET. PO SCH ×2 (09:00→20:48)
[2018-12-07] MEDS: PANTOPRAZOLE 40 MG TABLET.DR. PO SCH (09:11)
[2018-12-07] MEDS: INSULIN LISPRO 300 UNITS/3 ML INSULN.PEN. SQ SCH ×3 (09:20→17:19)
[2018-12-07 10:22] LABS: MAGNESIUM 1.1 mg/dL (1.8-2.4); POTASSIUM 3.4 mmol/L (3.5-5.1)
[2018-12-07] MEDS ORDERED: MAGNESIUM SULFATE 4GM 100 ML IV ONE (11:00)
--- NOTE | 2018-12-07 11:48 | PDOC ---
PROGRESS NOTES Subjective Subjective SEEN IN FOLLOW UP OF ARF Objective Objective Vital Signs Date Time Temp Pulse Resp B/P (MAP) Pulse Ox O2 Delivery O2 Flow Rate FiO2 12/07/18 11:00 94 14 97/56 (70) 89 Room Air 12/07/18 08:00 98.9 98.9 12/07/18 06:00 2.0 Intake and Output 12/07/18 07:00 Intake Total 7513.38 ml Output Total 6887 ml Balance 626.38 ml Intake Oral 3760 ml IV Total 3753.38 ml Output Urine Total 6887 ml Physical Exam Abdomen: Normal bowel sounds, Soft, No tenderness, No hepatosplenomegaly, No masses Heart: Regular rate, Normal S1, Normal S2, No murmurs, Gallops Extremities: No clubbing, No cyanosis, No edema, Normal pulses, No tenderness/swelling General: Alert, Oriented X3, Cooperative, No acute distress Lungs: Clear to auscultation, Normal air movement Diagnosis RENAL FAILURE: Acute (Acute tubular necrosis) Plan Plan of Care RENAL FUNCTION IS IMPROVING. WILL CONT IVF AND SUPP LYTES. 24 H URINE PROTEIN PENDING. Comment Review of Relevant I have reviewed the following items anny (where applicable) has been applied. Labs Laboratory Tests Test 12/05/18 15:45 12/05/18 17:20 12/05/18 18:50 12/05/18 18:57 White Blood Count 11.0 x10^3/uL (4.0-11.0) Red Blood Count 3.52 x10^6/uL (4.30-5.70) Hemoglobin 10.7 g/dL (13.0-17.5) Hematocrit 32.9 % (39.0-53.0) Mean Corpuscular Volume 94 fL (79-100) Mean Corpuscular Hemoglobin 30 pg (25-35) Mean Corpuscular Hemoglobin Concent 33 g/dL (31-37) Red Cell Distribution Width 13.6 % (11.5-14.5) Platelet Count 209 x10^3/uL (140-400) Neutrophils (%) (Auto) 55 % (31-73) Lymphocytes (%) (Auto) 34 % (24-48) Monocytes (%) (Auto) 7 % (0-9) Eosinophils (%) (Auto) 4 % (0-3) Basophils (%) (Auto) 0 % (0-3) Neutrophils # (Auto) 6.1 x10^3uL (1.8-7.7) Lymphocytes # (Auto) 3.8 x10^3/uL (1.0-4.8) Monocytes # (Auto) 0.7 x10^3/uL (0.0-1.1) Eosinophils # (Auto) 0.4 x10^3/uL (0.0-0.7) Basophils # (Auto) 0.0 x10^3/uL (0.0-0.2) Sodium Level 136 mmol/L (136-145) Potassium Level 7.8 mmol/L (3.5-5.1) Chloride Level 103 mmol/L (98-107) Carbon Dioxide Level 12 mmol/L (21-32) Anion Gap 21 (6-14) Blood Urea Nitrogen 115 mg/dL (8-26) Creatinine 14.1 mg/dL (0.7-1.3) Estimated GFR (Cockcroft-Gault) 3.8 BUN/Creatinine Ratio 8 (6-20) Glucose Level 84 mg/dL (70-99) Calcium Level 9.2 mg/dL (8.5-10.1) Total Bilirubin 0.5 mg/dL (0.2-1.0) Aspartate Amino Transf (AST/SGOT) 17 U/L (15-37) Alanine Aminotransferase (ALT/SGPT) 21 U/L (16-63) Alkaline Phosphatase 147 U/L (46-116) Total Protein 7.8 g/dL (6.4-8.2) Albumin 3.8 g/dL (3.4-5.0) Albumin/Globulin Ratio 1.0 (1.0-1.7) Lipase 406 U/L (73-393) Ethyl Alcohol Level < 10 mg/dL (0-10) Glucose (Fingerstick) 69 mg/dL (70-99) 156 mg/dL (70-99) Urine Collection Type Unknown Urine Color Yellow Urine Clarity Clear Urine pH 5.0 Urine Specific [place] 1.015 Urine Protein 30 mg/dL (NEG-TRACE) Urine Glucose (UA) Negative mg/dL (NEG) Urine Ketones (Stick) Negative mg/dL (NEG) Urine Blood Small (NEG) Urine Nitrite Negative (NEG) Urine Bilirubin Negative (NEG) Urine Urobilinogen Dipstick 0.2 mg/dL (0.2 mg/dL) Urine Leukocyte Esterase Negative (NEG) Urine RBC 3-5 /HPF (0-2) Urine WBC Rare /HPF (0-4) Urine Squamous Epithelial Cells Few /LPF Urine Amorphous Sediment Present /HPF Urine Bacteria 0 /HPF (0-FEW) Urine Hyaline Casts Occasional /HPF Urine Mucus Slight /LPF Test 12/05/18 21:50 12/06/18 04:30 12/06/18 11:58 12/06/18 14:22 Sodium Level 142 mmol/L (136-145) 145 mmol/L (136-145) 141 mmol/L (136-145) Potassium Level 5.0 mmol/L (3.5-5.1) 4.3 mmol/L (3.5-5.1) 4.1 mmol/L (3.5-5.1) Chloride Level 110 mmol/L (98-107) 108 mmol/L (98-107) 102 mmol/L (98-107) Carbon Dioxide Level 12 mmol/L (21-32) 17 mmol/L (21-32) 25 mmol/L (21-32) Anion Gap 20 (6-14) 20 (6-14) 14 (6-14) Blood Urea Nitrogen 111 mg/dL (8-26) 96 mg/dL (8-26) 81 mg/dL (8-26) Creatinine 13.0 mg/dL (0.7-1.3) 11.2 mg/dL (0.7-1.3) 8.7 mg/dL (0.7-1.3) Estimated GFR (Cockcroft-Gault) 4.2 5.0 6.7 Glucose Level 94 mg/dL (70-99) 138 mg/dL (70-99) 227 mg/dL (70-99) Calcium Level 9.0 mg/dL (8.5-10.1) 8.8 mg/dL (8.5-10.1) 8.6 mg/dL (8.5-10.1) White Blood Count 8.1 x10^3/uL (4.0-11.0) Red Blood Count 3.00 x10^6/uL (4.30-5.70) Hemoglobin 9.3 g/dL (13.0-17.5) Hematocrit 27.5 % (39.0-53.0) Mean Corpuscular Volume 92 fL (79-100) Mean Corpuscular Hemoglobin 31 pg (25-35) Mean Corpuscular Hemoglobin Concent 34 g/dL (31-37) Red Cell Distribution Width 13.8 % (11.5-14.5) Platelet Count 191 x10^3/uL (140-400) BUN/Creatinine Ratio 9 (6-20) Total Bilirubin 0.4 mg/dL (0.2-1.0) Aspartate Amino Transf (AST/SGOT) 14 U/L (15-37) Alanine Aminotransferase (ALT/SGPT) 19 U/L (16-63) Alkaline Phosphatase 128 U/L (46-116) Creatine Kinase 111 U/L (39-308) Total Protein 6.5 g/dL (6.4-8.2) Albumin 3.1 g/dL (3.4-5.0) Albumin/Globulin Ratio 0.9 (1.0-1.7) Lipase 369 U/L (73-393) Glucose (Fingerstick) 168 mg/dL (70-99) Test 12/06/18 16:46 12/07/18 03:30 12/07/18 07:58 12/07/18 10:00 Glucose (Fingerstick) 173 mg/dL (70-99) 168 mg/dL (70-99) White Blood Count 11.6 x10^3/uL (4.0-11.0) Red Blood Count 3.25 x10^6/uL (4.30-5.70) Hemoglobin 9.9 g/dL (13.0-17.5) Hematocrit 29.2 % (39.0-53.0) Mean Corpuscular Volume 90 fL (79-100) Mean Corpuscular Hemoglobin 31 pg (25-35) Mean Corpuscular Hemoglobin Concent 34 g/dL (31-37) Red Cell Distribution Width 13.4 % (11.5-14.5) Platelet Count 211 x10^3/uL (140-400) Sodium Level 143 mmol/L (136-145) Potassium Level 2.9 mmol/L (3.5-5.1) 3.4 mmol/L (3.5-5.1) Chloride Level 100 mmol/L (98-107) Carbon Dioxide Level 32 mmol/L (21-32) Anion Gap 11 (6-14) Blood Urea Nitrogen 55 mg/dL (8-26) Creatinine 5.3 mg/dL (0.7-1.3) Estimated GFR (Cockcroft-Gault) 11.8 BUN/Creatinine Ratio 10 (6-20) Glucose Level 164 mg/dL (70-99) Calcium Level 8.8 mg/dL (8.5-10.1) Total Bilirubin 0.4 mg/dL (0.2-1.0) Aspartate Amino Transf (AST/SGOT) 15 U/L (15-37) Alanine Aminotransferase (ALT/SGPT) 20 U/L (16-63) Alkaline Phosphatase 133 U/L (46-116) Creatine Kinase 92 U/L (39-308) Total Protein 6.8 g/dL (6.4-8.2) Albumin 3.3 g/dL (3.4-5.0) Albumin/Globulin Ratio 0.9 (1.0-1.7) Phosphorus Level 3.9 mg/dL (2.6-4.7) Magnesium Level 1.1 mg/dL (1.8-2.4) Laboratory Tests Test 12/06/18 11:58 12/06/18 14:22 12/06/18 16:46 12/07/18 03:30 Glucose (Fingerstick) 168 mg/dL (70-99) 173 mg/dL (70-99) Sodium Level 141 mmol/L (136-145) 143 mmol/L (136-145) Potassium Level 4.1 mmol/L (3.5-5.1) 2.9 mmol/L (3.5-5.1) Chloride Level 102 mmol/L (98-107) 100 mmol/L (98-107) Carbon Dioxide Level 25 mmol/L (21-32) 32 mmol/L (21-32) Anion Gap 14 (6-14) 11 (6-14) Blood Urea Nitrogen 81 mg/dL (8-26) 55 mg/dL (8-26) Creatinine 8.7 mg/dL (0.7-1.3) 5.3 mg/dL (0.7-1.3) Estimated GFR (Cockcroft-Gault) 6.7 11.8 Glucose Level 227 mg/dL (70-99) 164 mg/dL (70-99) Calcium Level 8.6 mg/dL (8.5-10.1) 8.8 mg/dL (8.5-10.1) White Blood Count 11.6 x10^3/uL (4.0-11.0) Red Blood Count 3.25 x10^6/uL (4.30-5.70) Hemoglobin 9.9 g/dL (13.0-17.5) Hematocrit 29.2 % (39.0-53.0) Mean Corpuscular Volume 90 fL (79-100) Mean Corpuscular Hemoglobin 31 pg (25-35) Mean Corpuscular Hemoglobin Concent 34 g/dL (31-37) Red Cell Distribution Width 13.4 % (11.5-14.5) Platelet Count 211 x10^3/uL (140-400) BUN/Creatinine Ratio 10 (6-20) Total Bilirubin 0.4 mg/dL (0.2-1.0) Aspartate Amino Transf (AST/SGOT) 15 U/L (15-37) Alanine Aminotransferase (ALT/SGPT) 20 U/L (16-63) Alkaline Phosphatase 133 U/L (46-116) Creatine Kinase 92 U/L (39-308) Total Protein 6.8 g/dL (6.4-8.2) Albumin 3.3 g/dL (3.4-5.0) Albumin/Globulin Ratio 0.9 (1.0-1.7) Test 12/07/18 07:58 12/07/18 10:00 Glucose (Fingerstick) 168 mg/dL (70-99) Potassium Level 3.4 mmol/L (3.5-5.1) Phosphorus Level 3.9 mg/dL (2.6-4.7) Magnesium Level 1.1 mg/dL (1.8-2.4) Medications Current Medications Sodium Chloride 1,000 ml @ 1,000 mls/hr 1X ONCE IV Last administered on 12/05/18at 15:51; Start 12/05/18 at 15:00; Stop 12/05/18 at 15:59; Status DC Sodium Chloride 1,000 ml @ 150 mls/hr Q6H40M IV Last administered on 12/05/18at 17:47; Start 12/05/18 at 17:00; Stop 12/05/18 at 22:32; Status DC Calcium Gluconate 1000 mg/Dextrose 110 ml @ 220 mls/hr 1X ONCE IV Last administered on 12/05/18at 17:30; Start 12/05/18 at 17:00; Stop 12/05/18 at 17:2 9; Status DC Sodium Bicarbonate (Sodium Bicarb Adult 8.4% Syr) 50 meq 1X ONCE IV Last administered on 12/05/18at 18:11; Start 12/05/18 at 17:00; Stop 12/05/18 at 17:01; Status DC Dextrose (Dextrose 50%-Water Syringe) 25 gm 1X ONCE IV Last administered on 12/05/18at 17:59; Start 12/05/18 at 17:00; Stop 12/05/18 at 17:01; Status DC Insulin Human Regular (HumuLIN R VIAL) 10 unit 1X ONCE IV Last administered on 12/05/18at 18:06; Start 12/05/18 at 17:00; Stop 12/05/18 at 17:01; Status DC Sodium Polystyrene Sulfonate (Kayexalate) 30 gm Q4H PO Last administered on 12/05/18at 21:05; Start 12/05/18 at 16:57; Stop 12/05/18 at 20:58; Status DC Fentanyl Citrate (Fentanyl 2ml Vial) 50 mcg PRN Q3HRS PRN IV MOD-SEVERE PAIN, 2ND CHOICE Last administered on 12/06/18at 09:01; Start 12/05/18 at 17:45 Sodium Chloride 1,000 ml @ 500 mls/hr 1X ONCE IV Last administered on 12/05/18at 20:13; Start 12/05/18 at 20:00; Stop 12/05/18 at 21:59; Status DC Hydromorphone HCl (Dilaudid) 2 mg PRN Q4HRS PRN IV MOD-SEVERE PAIN, 1ST CHOICE Last administered on 12/07/18at 05:29; Start 12/05/18 at 20:00 Sodium Bicarbonate 150 meq/Dextrose 1,150 ml @ 150 mls/hr Q7H40M IV Last administered on 12/07/18at 04:38; Start 12/05/18 at 21:00; Stop 12/07/18 at 08:08; Status DC Lactulose (Lactulose) 20 gm 1X ONCE PO Last administered on 12/05/18at 21:04; Start 12/05/18 at 21:00; Stop 12/05/18 at 21:01; Status DC Sodium Chloride 1,000 ml @ 500 mls/hr 1X ONCE IV Last administered on 12/06/18at 00:00; Start 12/05/18 at 23:55; Stop 12/06/18 at 01:54; Status DC Norepinephrine Bitartrate 250 ml @ 1.875 mls/ hr CONT PRN IV SEE I/O RECORD Last administered on 12/06/18at 05:33; Start 12/05/18 at 23:45 Insulin Human Lispro (HumaLOG) 0-5 UNITS TIDWMEALS SQ Last administered on 12/07/18at 09:20; Start 12/06/18 at 17:00 Dextrose (Dextrose 50%-Water Syringe) 12.5 gm PRN Q15MIN PRN IV SEE COMMENTS; Start 12/06/18 at 17:00 Ondansetron HCl (Zofran) 4 mg PRN Q6HRS PRN IV NAUSEA/VOMITING Last administered on 12/07/18at 11:17; Start 12/07/18 at 00:00 Potassium Chloride/Water 100 ml @ 100 mls/hr Q1H IV Last administered on 12/07/18at 07:15; Start 12/07/18 at 05:15; Stop 12/07/18 at 08:14; Status DC Methocarbamol (Robaxin) 750 mg QID PO ; Start 12/07/18 at 09:00 Ascorbic Acid (Vitamin C) 1,000 mg DAILY PO ; Start 12/07/18 at 09:00 Lactobacillus Rhamnosus (Culturelle) 2 cap QHS PO ; Start 12/07/18 at 21:00 Buspirone HCl (Buspar) 15 mg BID PO ; Start 12/07/18 at 09:00 Vitamin D (Vitamin D3) 5,000 unit DAILY PO ; Start 12/07/18 at 09:00 Duloxetine HCl (Cymbalta) 60 mg DAILY PO ; Start 12/07/18 at 09:00 Amylase/Lipase/ Protease (Zenpep 10,000) 7 cap TIDWMEALS PO ; Start 12/07/18 at 12:00 Multivitamins (Thera M Plus) 1 tab DAILY PO ; Start 12/07/18 at 09:00 Olanzapine (ZyPREXA) 15 mg QHS PO ; Start 12/07/18 at 21:00 Fish Oil (Fish Oil) 1,000 mg QHS PO ; Start 12/07/18 at 21:00 Pantoprazole Sodium (Protonix) 40 mg DAILYAC PO Last administered on 12/07/18at 09:11; Start 12/07/18 at 09:00 Topiramate (Topamax) 50 mg BID PO ; Start 12/07/18 at 09:00 Metoclopramide HCl (Reglan Vial) 2.5 mg QIDACHS IV ; Start 12/07/18 at 11:30 Info ([facility] Electrolyte Protocol) 1 ea CONT PRN PRN MC PER PROTOCOL; Start 11/19 04/09 at 08:15 Dextrose/Sodium Chloride 1,000 ml @ 125 mls/hr 1X ONCE IV Last administered on 12/07/18at 08:26; Start 12/07/18 at 08:15; Stop 12/07/18 at 16:14 Dextrose/Sodium Chloride 1,000 ml @ 125 mls/hr Q8H IV Last administered on 12/07/18at 09:00; Start 12/07/18 at 09:30 Potassium Chloride/Water 100 ml @ 100 mls/hr Q1H IV Last administered on 12/07/18at 10:41; Start 12/07/18 at 11:00; Stop 12/07/18 at 14:59 Magnesium Sulfate/ Dextrose 100 ml @ 25 mls/hr 1X ONCE IV Last administered on 12/07/18at 11:00; Start 12/07/18 at 11:00; Stop 12/07/18 at 14:59 Active Scripts Active Reported Aspirin 81 Mg Tab.chew 81 Mg PO HS Olanzapine 10 Mg Tablet 1.5 Tab PO QHS Topiramate 50 Mg Tablet 1 Tab PO BID Robaxin-750 (Methocarbamol) 750 Mg Tablet 750 Mg PO QID Humira (Adalimumab) 40 Mg/0.8 Ml Pen.ij.kit 40 Mg SQ EVERY 2 WEEKS Align (Bifidobacterium Infantis) 4 Mg Capsule 4 Mg PO HS Fish Oil 1,000 Mg Softgel ([place]-3 Fatty Acids/Fish Oil) 1 Each Capsule 1 Each PO HS Cymbalta (Duloxetine Hcl) 60 Mg Capsule.dr 1 Cap PO HS Invokamet Xr 150-500 mg Tablet (Canagliflozin/Metformin HCl) 1 Each Tab.bp.24h 1 Each PO BIDWMEALS [place] 36,000 Units Capsule (Lipase/Protease/Amylase) 1 Each Capsule.dr 2 Each PO TIDWMEALS Actos (Pioglitazone Hcl) 30 Mg Tablet 1 Tab PO DAILY Crestor (Rosuvastatin Calcium) 40 Mg Tablet 1 Tab PO DAILY Buspirone Hcl 15 Mg Tablet 1 Tab PO BID Vitamin C (Ascorbic Acid) 1,000 Mg Tablet 1,000 Mg PO DAILY Omeprazole 40 Mg Capsule.dr 1 Cap PO DAILY Vitamin D3 (Cholecalciferol (Vitamin D3)) 5,000 Unit Tablet 1 Tab PO DAILY Multi-Day Vitamins (Multivitamin) 1 Each Tablet 1 Tab PO DAILY Vitals/I & O Vital Sign - Last 24 Hours 12/06/18 12/06/18 12/06/18 12/06/18 12:00 12:00 12:15 12:30 Temp 98.1 98.1 Pulse 79 96 84 Resp 14 B/P (MAP) 103/65 (78) 105/62 (76) 93/57 (69) Pulse Ox 96 O2 Delivery Room Air Room Air 12/06/18 12/06/18 12/06/18 12/06/18 12:45 13:00 14:00 15:00 Pulse 86 84 86 85 Resp 14 14 12 B/P (MAP) 89/51 (64) 91/57 (68) 91/60 (70) 97/56 (70) Pulse Ox 97 86 96 O2 Delivery Room Air Room Air Room Air 12/06/18 12/06/18 12/06/18 12/06/18 16:00 16:00 16:38 17:00 Temp 98.7 98.7 Pulse 85 76 Resp 12 16 12 B/P (MAP) 113/68 (83) 106/67 (80) Pulse Ox 97 97 98 O2 Delivery Room Air Room Air Room Air Room Air 12/06/18 12/06/18 12/06/18 12/06/18 17:28 18:00 19:00 20:00 Temp 98.2 98.2 Pulse 96 84 82 Resp 14 18 14 16 B/P (MAP) 109/66 (80) 91/48 (62) 85/50 (62) Pulse Ox 95 99 99 98 O2 Delivery Room Air Room Air Room Air Room Air 12/06/18 12/06/18 12/06/18 12/06/18 20:00 21:00 21:29 22:00 Pulse 83 88 Resp 12 12 13 B/P (MAP) 93/60 (71) 96/59 (71) Pulse Ox 97 94 92 O2 Delivery Room Air Room Air Room Air Room Air 12/06/18 12/07/18 12/07/18 12/07/18 23:00 00:00 00:06 01:00 Temp 98.2 98.2 Pulse 88 93 86 Resp 13 14 13 B/P (MAP) 98/58 (71) 93/55 (68) 104/51 (68) Pulse Ox 92 94 92 O2 Delivery Room Air Room Air Room Air Room Air 12/07/18 12/07/18 12/07/18 12/07/18 02:00 03:00 04:00 04:10 Temp 98.6 98.6 Pulse 89 87 75 Resp 12 11 11 B/P (MAP) 91/54 (66) 93/58 (70) 102/58 (73) Pulse Ox 93 92 95 O2 Delivery Room Air Room Air Room Air Room Air 12/07/18 12/07/18 12/07/18 12/07/18 05:00 05:29 06:00 07:00 Pulse 101 83 92 Resp 11 12 10 12 B/P (MAP) 114/60 (78) 97/54 (68) 87/56 (66) Pulse Ox 96 95 92 O2 Delivery Nasal Cannula Room Air Nasal Cannula Room Air O2 Flow Rate 2.0 2.0 12/07/18 12/07/18 12/07/18 12/07/18 08:00 08:00 09:00 10:00 Temp 98.9 98.9 Pulse 84 86 82 Resp 14 12 12 B/P (MAP) 96/53 (67) 100/85 (90) 104/57 (73) Pulse Ox 94 97 92 O2 Delivery Room Air Room Air Room Air Room Air 12/07/18 11:00 Pulse 94 Resp 14 B/P (MAP) 97/56 (70) Pulse Ox 89 O2 Delivery Room Air Intake and Output 12/06/18 12/06/18 12/07/18 15:00 23:00 07:00 Intake Total 4659.38 ml 2854 ml Output Total 2387 ml 2250 ml 2250 ml Balance -2387 ml 2409.38 ml 604 ml KENDALL PAULINO MD December 07, 2018 11:48
[2018-12-07] MEDS: LIPASE/PROTEAS/AMYLAS 10/32/42 CAPSULE.DR. PO SCH ×2 (12:00→17:00)
[2018-12-07] MEDS: METOCLOPRAMIDE HCL 10 MG/2 ML VIAL. IV SCH ×3 (12:28→20:37)
[2018-12-07] MEDS: NOREPINEPHRIN 8MG/250ML PREMIX 250 ML IV PRN (19:11)
[2018-12-07] MEDS: OLANZapine 5 MG TABLET PO SCH (20:36)
[2018-12-07] MEDS: fentaNYL PF VIAL 100 MCG/2 ML VIAL IV PRN (20:38)
[2018-12-07] MEDS: OMEGA-3 FATTY ACIDS/FISH OIL 1,000 MG CAPSULE. PO SCH (20:49)
[2018-12-07] MEDS: LACTOBACILLUS RHAMNOSUS GG 1 CAPSULE. PO SCH (20:49)
--- NOTE | 2018-12-07 21:16 | PN ---
DATE: 12/07/2018 SUBJECTIVE: The patient is resting, slightly propped up in bed, in no apparent respiratory distress. Continued to have recurrent bouts of nausea and vomiting. He also complained of headache; however, his serum creatinine is steadily improving, came down from 14 on admission to 5.3 this morning. His bicarbonate has risen to 32. His potassium has dropped down to 2.9. PHYSICAL EXAMINATION: GENERAL: When I examined him, he looked pale. No jaundice, cyanosis, or thyromegaly. No jugular venous distension. No limb edema. VITAL SIGNS: His heart rate was 92, blood pressure was 87/56, temperature was 98.6, respiratory rate was 12 and oxygen saturation was 92% on room air. HEAD, EYES, EARS, NOSE AND THROAT: Showed normocephalic, atraumatic. NECK: Supple. HEART: Showed normal first and second heart sounds. No gallop or murmur. CHEST: Clear to auscultation. No crepitation or rhonchi. ABDOMEN: Distended, soft, nontender. NEUROLOGIC: He was awake, alert, responding appropriately. All cranial nerves intact. He moves extremities without difficulty. His intake over the last 24 hours was 2250, output was 1785. LABORATORY DATA: As of this morning, his serum sodium is 143, potassium 2.9, chloride 100, bicarbonate 32, anion gap of 11, BUN 55, creatinine was 5.3. Estimated GFR is up to 11.8, glucose 164, calcium was 8.8. Total bilirubin, AST, ALT were normal. Alkaline phosphatase slightly elevated. His total protein was 6.8, albumin was 3.3. His white cell count was 11,600, hemoglobin 10, hematocrit 29, MCV 90 and platelet count 211,000. ASSESSMENT: 1. Acute kidney injury and marked hypokalemia and high anion gap metabolic acidosis, improving. His potassium is actually low at 2.5. Creatinine is down to 5.3. His baseline creatinine is 1.1. The patient has been on ibuprofen 600 mg 4 times a day for last few days about 4-5 days prior to admission. He is also on Invokana and metformin and one of the side effects is acute renal failure. 2. The patient has multiple other medical problems including: A. Crohn's disease. B. Recurrent pancreatitis. C. Hyperlipidemia. D. Migraine headaches. E. Depression. F. Gastroesophageal reflux disease. G. Type 2 diabetes mellitus, which he is on Invokamet as well as pioglitazone. He is also on Humira 40 mg subcutaneously every 2 weeks for his Crohn's disease. I actually held all his medications initially. 3. The patient has hypokalemia and his bicarbonate has risen to 32 millimole per liter. PLAN: To start him on the ICU electrolyte protocol. Discontinue his bicarbonate drip and start him on D5 half normal 125 mL. We will continue with sliding scale for now, continue to monitor his electrolytes and kidney function. His CK was normal and rhabdomyolysis do not contribute to his renal failure. YOUSUF TAVAREZ MD DR: RUIZ/luis JOB#: [id number] / [id number]
[2018-12-08] VITALS (17 sets, daily range): BP systolic 88–115; BP diastolic 52–75
[2018-12-08] MEDS: HYDROmorphone 2 MG/ML VIAL IV PRN ×4 (00:08→22:30)
[2018-12-08 01:08] LABS: UR PROTEIN 15.2 mg/dL (Not Estab.)
[2018-12-08] MEDS: fentaNYL PF VIAL 100 MCG/2 ML VIAL IV PRN ×2 (02:32→07:45)
[2018-12-08] MEDS: IV DEXTROSE 5 %-0.45 % NACL 1,000 ML IV SCH ×3 (04:07→20:02)
[2018-12-08 05:42] LABS: ALBUMIN 3.2 g/dL (3.4-5.0); CALCIUM 8.6 mg/dL (8.5-10.1); GFR 22.7; POTASSIUM 3.8 mmol/L (3.5-5.1); TOTAL BILIRUBIN 0.4 mg/dL (0.2-1.0); TOTAL PROTEIN 6.3 g/dL (6.4-8.2)
[2018-12-08 06:39] LABS: BASO % 1 % (0-3); EOS # 0.7 x10^3/uL (0.0-0.7); EOS % 7 % (0-3); HEMATOCRIT 29.1 % (39.0-53.0); HEMOGLOBIN 9.7 g/dL (13.0-17.5); LYMPH # 4.2 x10^3/uL (1.0-4.8); LYMPH % 41 % (24-48); MEAN CORPUSCULAR HEMOGLOBIN 31 pg (25-35); MEAN CORPUSCULAR HGB CONC 33 g/dL (31-37); MEAN CORPUSCULAR VOLUME 92 fL (79-100); MONO % 9 % (0-9); NEUT # 4.2 x10^3uL (1.8-7.7); NEUT % 42 % (31-73); PLATELET COUNT 195 x10^3/uL (140-400); RED BLOOD COUNT 3.17 x10^6/uL (4.30-5.70); RED CELL DISTRIBUTION WIDTH 13.4 % (11.5-14.5); WHITE BLOOD COUNT 10.1 x10^3/uL (4.0-11.0)
[2018-12-08] MEDS: ONDANSETRON PF 4 MG/2 ML VIAL. IV PRN (07:51)
[2018-12-08] MEDS: TOPIRAMATE 25 MG TABLET. PO SCH ×2 (07:51→20:04)
[2018-12-08] MEDS: INSULIN LISPRO 300 UNITS/3 ML INSULN.PEN. SQ SCH ×3 (08:00→16:40)
--- NOTE | 2018-12-08 08:12 | NUR ---
[id number] Sudden onset "intolerable " migraine pain . Writhing in bed,holding head,episodes wretching w expectoration of spit minus other emesis.IV MED . Administered IV med ,antiemetic and early dose Topramax. Dr Bryant in. Patient reports takes pain med "when pain starts to corona". Communicated w . Informed med was ergotamine. Spoke to [facility]... do not carry med. informed.
[2018-12-08] MEDS: METOCLOPRAMIDE HCL 10 MG/2 ML VIAL. IV SCH ×4 (09:46→20:03)
[2018-12-08] MEDS: PANTOPRAZOLE 40 MG TABLET.DR. PO SCH (09:46)
[2018-12-08] MEDS: LIPASE/PROTEAS/AMYLAS 10/32/42 CAPSULE.DR. PO SCH ×3 (09:47→17:11)
[2018-12-08] MEDS: ASCORBIC ACID 500 MG TABLET PO SCH (09:48)
[2018-12-08] MEDS: CHOLECALCIFEROL (VITAMIN D3) 5,000 UNIT CAPSULE PO SCH (09:48)
[2018-12-08] MEDS: busPIRone 10 MG TABLET. PO SCH ×2 (09:48→20:04)
[2018-12-08] MEDS: MULTIVITAMIN with MINERAL TABLET. PO SCH (09:49)
[2018-12-08] MEDS: METHOCARBAMOL 750 MG TABLET PO SCH ×4 (09:49→20:03)
[2018-12-08] MEDS: DULoxetine HCL 30 MG CAPSULE.DR PO SCH (09:51)
--- NOTE | 2018-12-08 10:29 | PDOC ---
SUBJECTIVE ROS Had a bad MEHTA this am- Hx of Migraine Currently sleeping, No concerns voiced by RN OBJECTIVE Vital Signs Vital Signs Date Time Temp Pulse Resp B/P (MAP) Pulse Ox O2 Delivery O2 Flow Rate FiO2 12/08/18 07:45 98 Nasal Cannula 2.0 12/08/18 06:00 78 12 94/60 (71) 12/08/18 04:00 99.2 99.2 I & 0 Intake and Output 12/08/18 07:00 Intake Total 3834.3 ml Output Total 5655 ml Balance -1820.7 ml Intake Oral 250 ml IV Total 3584.3 ml Output Urine Total 5055 ml Emesis 600 ml PHYSICAL EXAM Physical Exam GEN: NAD , sleeping comfortably HEN: OM moist NECK: Supple CVS: RRR RESP: CTA, Non labored GI: BS + ve, NO Bruit, Non Tender, DIAGNOSIS/ASSESSMENT Assessment & Plan EMELY- ATN sec to dehydration, use of NSAID's Improving renal function Cr from 14 to 3 prompt Diuresis with Simmons placement No Hydronephrosis on US E-Lytes and acid base stable Marked hypokalemia and high anion gap metabolic- at presentation Resolved Crohn's disease. Recurrent pancreatitis. Type 2 diabetes mellitus COMMENT/RELEVANT DATA Meds Current Medications Medications (Trade) Dose Ordered Sig/Justa Start Time Stop Time Status Last Admin Dose Admin Amylase/Lipase/ Protease (Zenpep 10,000) 7 cap TIDWMEALS 12/07/18 12:00 12/08/18 09:47 7 CAP Ascorbic Acid (Vitamin C) 1,000 mg DAILY 12/07/18 09:00 12/08/18 09:48 1,000 MG Buspirone HCl (Buspar) 15 mg BID 12/07/18 09:00 12/08/18 09:48 15 MG Calcium Gluconate 1000 mg/Dextrose 110 ml @ 220 mls/hr 1X ONCE 12/05/18 17:00 12/05/18 17:29 DC 12/05/18 17:30 220 MLS/HR Dextrose (Dextrose 50%-Water Syringe) 12.5 gm PRN Q15MIN PRN 12/06/18 17:00 Dextrose/Sodium Chloride 1,000 ml @ 125 mls/hr Q8H 12/07/18 09:30 12/08/18 04:07 125 MLS/HR Duloxetine HCl (Cymbalta) 60 mg DAILY 12/07/18 09:00 12/08/18 09:51 60 MG Fentanyl Citrate (Fentanyl 2ml Vial) 50 mcg PRN Q3HRS PRN 12/05/18 17:45 12/08/18 07:45 50 MCG Fish Oil (Fish Oil) 1,000 mg QHS 12/07/18 21:00 Hydromorphone HCl (Dilaudid) 2 mg PRN Q4HRS PRN 12/05/18 20:00 12/08/18 00:08 2 MG Info (Icu Electrolyte Protocol) 1 ea CONT PRN PRN 12/07/18 08:15 Insulin Human Lispro (HumaLOG) 0-5 UNITS TIDWMEALS 12/06/18 17:00 12/07/18 09:20 2 UNITS Insulin Human Regular (HumuLIN R VIAL) 10 unit 1X ONCE 12/05/18 17:00 12/05/18 17:01 DC 12/05/18 18:06 10 UNIT Lactobacillus Rhamnosus (Culturelle) 2 cap QHS 12/07/18 21:00 Lactulose (Lactulose) 20 gm 1X ONCE 12/05/18 21:00 12/05/18 21:01 DC 12/05/18 21:04 20 GM Magnesium Sulfate/ Dextrose 100 ml @ 25 mls/hr 1X ONCE 12/07/18 11:00 12/07/18 14:59 DC 12/07/18 11:00 25 MLS/HR Methocarbamol (Robaxin) 750 mg QID 12/07/18 09:00 12/08/18 09:49 750 MG Metoclopramide HCl (Reglan Vial) 2.5 mg QIDACHS 12/07/18 11:30 12/08/18 09:46 2.5 MG Multivitamins (Thera M Plus) 1 tab DAILY 12/07/18 09:00 12/08/18 09:49 1 TAB Norepinephrine Bitartrate 250 ml @ 1.875 mls/ hr CONT PRN 12/05/18 23:45 12/07/18 19:11 3.75 MLS/HR Olanzapine (ZyPREXA) 15 mg QHS 12/07/18 21:00 12/07/18 20:36 15 MG Ondansetron HCl (Zofran) 4 mg PRN Q6HRS PRN 12/07/18 00:00 12/08/18 07:51 4 MG Pantoprazole Sodium (Protonix) 40 mg DAILYAC 12/07/18 09:00 12/08/18 09:46 40 MG Potassium Chloride/Water 100 ml @ 100 mls/hr Q1H 12/07/18 11:00 12/07/18 14:59 DC 12/07/18 14:03 100 MLS/HR Sodium Bicarbonate 150 meq/Dextrose 1,150 ml @ 150 mls/hr Q7H40M 12/05/18 21:00 12/07/18 08:08 DC 12/07/18 04:38 150 MLS/HR Sodium Polystyrene Sulfonate (Kayexalate) 30 gm Q4H 12/05/18 16:57 12/05/18 20:58 DC 12/05/18 21:05 30 GM Sodium Bicarbonate (Sodium Bicarb Adult 8.4% Syr) 50 meq 1X ONCE 12/05/18 17:00 12/05/18 17:01 DC 12/05/18 18:11 50 MEQ Sodium Chloride 1,000 ml @ 500 mls/hr 1X ONCE 12/05/18 23:55 12/06/18 01:54 DC 12/06/18 00:00 500 MLS/HR Topiramate (Topamax) 50 mg BID 12/07/18 09:00 12/08/18 07:51 50 MG Vitamin D (Vitamin D3) 5,000 unit DAILY 12/07/18 09:00 12/08/18 09:48 5,000 UNIT Lab Laboratory Tests Test 12/07/18 11:47 12/07/18 12:30 12/07/18 17:18 12/07/18 18:20 Glucose (Fingerstick) 150 mg/dL (70-99) 156 mg/dL (70-99) Urine Protein 15.2 mg/dL (Not Estab.) Urine Protein 24 Hr Calculated 1079 mg/24 hr (30-150) Potassium Level 3.6 mmol/L (3.5-5.1) Test 12/08/18 04:20 12/08/18 06:00 12/08/18 08:27 Sodium Level 142 mmol/L (136-145) Potassium Level 3.8 mmol/L (3.5-5.1) Chloride Level 104 mmol/L (98-107) Carbon Dioxide Level 24 mmol/L (21-32) Anion Gap 14 (6-14) Blood Urea Nitrogen 28 mg/dL (8-26) Creatinine 3.0 mg/dL (0.7-1.3) Estimated GFR (Cockcroft-Gault) 22.7 BUN/Creatinine Ratio 9 (6-20) Glucose Level 136 mg/dL (70-99) Calcium Level 8.6 mg/dL (8.5-10.1) Magnesium Level 2.0 mg/dL (1.8-2.4) Total Bilirubin 0.4 mg/dL (0.2-1.0) Aspartate Amino Transf (AST/SGOT) 19 U/L (15-37) Alanine Aminotransferase (ALT/SGPT) 20 U/L (16-63) Alkaline Phosphatase 129 U/L (46-116) Total Protein 6.3 g/dL (6.4-8.2) Albumin 3.2 g/dL (3.4-5.0) Albumin/Globulin Ratio 1.0 (1.0-1.7) White Blood Count 10.1 x10^3/uL (4.0-11.0) Red Blood Count 3.17 x10^6/uL (4.30-5.70) Hemoglobin 9.7 g/dL (13.0-17.5) Hematocrit 29.1 % (39.0-53.0) Mean Corpuscular Volume 92 fL (79-100) Mean Corpuscular Hemoglobin 31 pg (25-35) Mean Corpuscular Hemoglobin Concent 33 g/dL (31-37) Red Cell Distribution Width 13.4 % (11.5-14.5) Platelet Count 195 x10^3/uL (140-400) Neutrophils (%) (Auto) 42 % (31-73) Lymphocytes (%) (Auto) 41 % (24-48) Monocytes (%) (Auto) 9 % (0-9) Eosinophils (%) (Auto) 7 % (0-3) Basophils (%) (Auto) 1 % (0-3) Neutrophils # (Auto) 4.2 x10^3uL (1.8-7.7) Lymphocytes # (Auto) 4.2 x10^3/uL (1.0-4.8) Monocytes # (Auto) 1.0 x10^3/uL (0.0-1.1) Eosinophils # (Auto) 0.7 x10^3/uL (0.0-0.7) Basophils # (Auto) 0.0 x10^3/uL (0.0-0.2) Glucose (Fingerstick) 155 mg/dL (70-99) Results All relevant outside records, renal labs, imaging studies, telemetry/EKG's were reviewed. LIZA LOPEZ MD December 08, 2018 10:29
--- NOTE | 2018-12-08 12:04 | PN ---
DATE: 12/08/2018 SUBJECTIVE: The patient is resting, slightly propped up in bed, in no apparent respiratory distress. He is awake, alert, complaining of severe headache. We did put him back on his Topamax; however, he takes also that is apparently ergotamine and caffeine. Other than that, he denied any other complaint. Nursing staff did not voice any concern, except that he continued to be on Levophed. His blood pressure continued to be on lower side. PHYSICAL EXAMINATION: GENERAL: When I examined him, he looked well and was clearly in no apparent respiratory distress. He is pale, but not jaundiced or cyanosed from thyromegaly. No jugular venous distention. No lower limb edema. VITAL SIGNS: His heart rate was 78, blood pressure was 94/60, temperature was 99.2, respiratory rate was 12 and oxygen saturation was 98% on 2 liters of oxygen. HEENT: Examination of the head, eyes, ears, nose and throat showed normocephalic, atraumatic. NECK: Supple. HEART: Showed normal first and second heart sounds. No gallop, rub or murmur. CHEST: Clear to auscultation. No crepitation or rhonchi. ABDOMEN: Distended, soft and nontender. NEUROLOGIC: He was awake, alert, responding appropriately. All cranial nerves intact. He moved extremities without difficulty. His intake over the last 24 hours was 7500, output was 7000. LABORATORY DATA: His lab work this morning showed a white cell count of 10,000, hemoglobin 9.7, hematocrit 29, MCV 92 and platelet count of 195,000. His chemistry showed a serum sodium 142, potassium 3.8, chloride 104, bicarbonate 24, anion gap of 14, BUN 28, creatinine 3, estimated GFR was 22.7 mL per minute, his glucose 136 and calcium was 8.6. Magnesium 2. Total bilirubin, AST and ALT are normal. Alkaline phosphatase slightly elevated. Total protein was 6.3. Albumin was 3.2. His 24-hour urine protein was 1079 mg/dL, normal range 30-150; it is not in the nephrotic range. ASSESSMENT: 1. Acute kidney injury with marked hyperkalemia and high anion gap metabolic acidosis, resolved. His potassium is actually up now to 3.8. Creatinine is down to 3 mg; his baseline creatinine is 1.1. The patient has been on ibuprofen 600 mg 4 times a day for the last few days, according to him about 4-5 days prior to admission. He is also on Invokana and metformin and one of the side effects of acute renal failure. 2. The patient has multiple other medical problems including: A. Crohn's disease. B. Recurrent pancreatitis. C. Hyperlipidemia. D. Migraine headache. E. Depression. F. Gastroesophageal reflux disease. G. Type 2 diabetes mellitus, for which he is on Invokamet as well as pioglitazone. He is also on Humira 40 mg subcutaneously every 2 weeks for his Crohn's disease. All these medications were held. 3. The patient had hypokalemia and metabolic alkalosis yesterday. We discontinued his bicarbonate drip and started him on electrolyte replacement protocol. His potassium is up to 3.8 and bicarb down to 24. PLAN: Plan is to obviously restart him on . I will contact his pharmacy at [place]. Continue meanwhile with fluid, attempt to titrate and discontinue the Levophed, then the patient can actually be transferred to the floor. We will eventually remove his catheter and see how he does without it. YOUSUF TAVAREZ MD DR: RUIZ/luis JOB#: [id number] / [id number]
--- NOTE | 2018-12-08 12:47 | NUR ---
1200 Migraine pain tolerable at this time. Accucheck w/o SSi needed at this time. Reports eat what he wants at home and sometimes "monitors" BG levels. Multiple system problems but currently uninterested in risk factor modification. Somnolent long inteval this am after am pain med. Awake briefly w same co pain. IVP meds pper order. Con't POC
--- NOTE | 2018-12-08 13:14 | NUR ---
Trans to 528 per W/C condition improved .
--- NOTE | 2018-12-08 14:16 | NUR ---
Patient received to room 528 per wheelchair, moved to bed with steady gait, minimal assist. Patient alert and oriented times four. Skin W/D, lungs CTA, brown to DD with clear yellow UO. Patient complaint of pain H/A and abd. pain. Abd soft and mild distention and tender with decreased bowel sounds. Patient verb. understanding medications, orientation to room and unit, fall risk and isolation. Side rails up times two, call light at hand. Continue cares and monitor.
--- NOTE | 2018-12-08 14:31 | NUR ---
SS following for discharge planning. SS reviewed pt chart. Pt is from home with spouse. No discharge needs noted at this time. SS will continue to follow for discharge planning.
[2018-12-08] MEDS: OLANZapine 5 MG TABLET PO SCH (20:03)
[2018-12-08] MEDS: OMEGA-3 FATTY ACIDS/FISH OIL 1,000 MG CAPSULE. PO SCH (20:03)
[2018-12-08] MEDS: LACTOBACILLUS RHAMNOSUS GG 1 CAPSULE. PO SCH (20:04)
[2018-12-09] MEDS: IV DEXTROSE 5 %-0.45 % NACL 1,000 ML IV SCH ×2 (03:46→10:21)
[2018-12-09] MEDS: HYDROmorphone 2 MG/ML VIAL IV PRN ×2 (03:46→08:56)
[2018-12-09 04:00] VITALS: BP 93/54
[2018-12-09] MEDS: fentaNYL PF VIAL 100 MCG/2 ML VIAL IV PRN (05:41)
[2018-12-09 06:13] LABS: CALCIUM 8.4 mg/dL (8.5-10.1); CREATININE 2.2 mg/dL (0.7-1.3); GFR 32.5; POTASSIUM 3.8 mmol/L (3.5-5.1)
[2018-12-09 07:00] VITALS: BP 102/63
[2018-12-09] MEDS: INSULIN LISPRO 300 UNITS/3 ML INSULN.PEN. SQ SCH ×2 (08:00→11:54)
[2018-12-09] MEDS: TOPIRAMATE 25 MG TABLET. PO SCH (08:54)
[2018-12-09] MEDS: LIPASE/PROTEAS/AMYLAS 10/32/42 CAPSULE.DR. PO SCH ×2 (08:54→11:23)
[2018-12-09] MEDS: MULTIVITAMIN with MINERAL TABLET. PO SCH (08:55)
[2018-12-09] MEDS: ASCORBIC ACID 500 MG TABLET PO SCH (08:55)
[2018-12-09] MEDS: DULoxetine HCL 30 MG CAPSULE.DR PO SCH (08:55)
[2018-12-09] MEDS: busPIRone 10 MG TABLET. PO SCH (08:55)
[2018-12-09] MEDS: CHOLECALCIFEROL (VITAMIN D3) 5,000 UNIT CAPSULE PO SCH (08:55)
[2018-12-09] MEDS: METOCLOPRAMIDE HCL 10 MG/2 ML VIAL. IV SCH ×2 (08:56→11:22)
[2018-12-09] MEDS: METHOCARBAMOL 750 MG TABLET PO SCH ×2 (08:56→13:05)
[2018-12-09] MEDS: PANTOPRAZOLE 40 MG TABLET.DR. PO SCH (08:56)
[2018-12-09 11:00] VITALS: BP 101/65
[2018-12-09] MEDS ORDERED: HYDROcodone/APAP 7.5/325MG 1 TAB TABLET PO PRN (11:45)
[2018-12-09] MEDS ORDERED: NON FORMULARY ITEM (Adalimumab (Humira) 40 MG) SQ SCH (11:45)
--- NOTE | 2018-12-09 14:02 | PDOC ---
SUBJECTIVE ROS Stable OBJECTIVE Vital Signs Vital Signs Date Time Temp Pulse Resp B/P (MAP) Pulse Ox O2 Delivery O2 Flow Rate FiO2 12/09/18 13:05 Room Air 12/09/18 11:00 98.5 71 18 101/65 (77) 93 98.5 12/09/18 06:10 2.0 I & 0 Intake and Output 12/09/18 07:00 Intake Total 5822 ml Output Total 4650 ml Balance 1172 ml Intake Oral 3810 ml IV Total 2012 ml Output Urine Total 4650 ml PHYSICAL EXAM Physical Exam GEN: NAD , sleeping comfortably HEN: OM moist NECK: Supple CVS: RRR RESP: CTA, Non labored GI: BS + ve, NO Bruit, Non Tender, DIAGNOSIS/ASSESSMENT Assessment & Plan EMELY- ATN sec to dehydration, use of NSAID's Improving renal function Cr from 14 to 2.2 No Hydronephrosis on US E-Lytes and acid base stable Adequate Hydration, avoid NSAID;s and nephrotoxins, dw Pt Marked hypokalemia and high anion gap metabolic- at presentation Resolved Crohn's disease. Recurrent pancreatitis. Type 2 diabetes mellitus Follow up with PCP post discharge Follow up with renal as OP if eGFR stays <60 COMMENT/RELEVANT DATA Meds Current Medications Medications (Trade) Dose Ordered Sig/Justa Start Time Stop Time Status Last Admin Dose Admin Acetaminophen/ Hydrocodone Bitart (Lortab 7.5/325) 1 tab PRN Q6HRS PRN 12/09/18 11:45 12/09/18 13:05 1 TAB Amylase/Lipase/ Protease (Zenpep 10,000) 7 cap TIDWMEALS 12/07/18 12:00 12/09/18 11:23 7 CAP Ascorbic Acid (Vitamin C) 1,000 mg DAILY 12/07/18 09:00 12/09/18 08:55 1,000 MG Aspirin (Children'S Aspirin) 81 mg HS 12/09/18 21:00 Atorvastatin Calcium (Lipitor) 80 mg QHS 12/09/18 21:00 Buspirone HCl (Buspar) 15 mg BID 12/07/18 09:00 12/09/18 08:55 15 MG Calcium Gluconate 1000 mg/Dextrose 110 ml @ 220 mls/hr 1X ONCE 12/05/18 17:00 12/05/18 17:29 DC 12/05/18 17:30 220 MLS/HR Dextrose (Dextrose 50%-Water Syringe) 12.5 gm PRN Q15MIN PRN 12/06/18 17:00 Dextrose/Sodium Chloride 1,000 ml @ 125 mls/hr Q8H 12/07/18 09:30 12/09/18 10:21 125 MLS/HR Duloxetine HCl (Cymbalta) 60 mg DAILY 12/07/18 09:00 12/09/18 08:55 60 MG Fentanyl Citrate (Fentanyl 2ml Vial) 50 mcg PRN Q3HRS PRN 12/05/18 17:45 12/09/18 05:41 50 MCG Fish Oil (Fish Oil) 1,000 mg QHS 12/07/18 21:00 12/08/18 20:03 1,000 MG Hydromorphone HCl (Dilaudid) 2 mg PRN Q4HRS PRN 12/05/18 20:00 12/09/18 11:33 DC 12/09/18 08:56 2 MG Info (Icu Electrolyte Protocol) 1 ea CONT PRN PRN 12/07/18 08:15 Insulin Human Lispro (HumaLOG) 0-5 UNITS TIDWMEALS 12/06/18 17:00 12/07/18 09:20 2 UNITS Insulin Human Regular (HumuLIN R VIAL) 10 unit 1X ONCE 12/05/18 17:00 12/05/18 17:01 DC 12/05/18 18:06 10 UNIT Lactobacillus Rhamnosus (Culturelle) 2 cap QHS 12/07/18 21:00 12/08/18 20:04 2 CAP Lactulose (Lactulose) 20 gm 1X ONCE 12/05/18 21:00 12/05/18 21:01 DC 12/05/18 21:04 20 GM Magnesium Sulfate/ Dextrose 100 ml @ 25 mls/hr 1X ONCE 12/07/18 11:00 12/07/18 14:59 DC 12/07/18 11:00 25 MLS/HR Methocarbamol (Robaxin) 750 mg QID 12/07/18 09:00 12/09/18 13:05 750 MG Metoclopramide HCl (Reglan Vial) 2.5 mg QIDACHS 12/07/18 11:30 12/09/18 11:33 DC 12/09/18 11:22 2.5 MG Multivitamins (Thera M Plus) 1 tab DAILY 12/07/18 09:00 12/09/18 08:55 1 TAB Non-Formulary Medication (Adalimumab (Humira)) 40 mg every 2 weeks 12/09/18 11:45 UNV Norepinephrine Bitartrate 250 ml @ 1.875 mls/ hr CONT PRN 12/05/18 23:45 12/08/18 17:02 DC 12/07/18 19:11 3.75 MLS/HR Olanzapine (ZyPREXA) 15 mg QHS 12/07/18 21:00 12/08/18 20:03 15 MG Ondansetron HCl (Zofran) 4 mg PRN Q6HRS PRN 12/07/18 00:00 12/08/18 07:51 4 MG Pantoprazole Sodium (Protonix) 40 mg DAILYAC 12/07/18 09:00 12/09/18 08:56 40 MG Potassium Chloride/Water 100 ml @ 100 mls/hr Q1H 12/07/18 11:00 12/07/18 14:59 DC 12/07/18 14:03 100 MLS/HR Sodium Bicarbonate 150 meq/Dextrose 1,150 ml @ 150 mls/hr Q7H40M 12/05/18 21:00 12/07/18 08:08 DC 12/07/18 04:38 150 MLS/HR Sodium Polystyrene Sulfonate (Kayexalate) 30 gm Q4H 12/05/18 16:57 12/05/18 20:58 DC 12/05/18 21:05 30 GM Sodium Bicarbonate (Sodium Bicarb Adult 8.4% Syr) 50 meq 1X ONCE 12/05/18 17:00 12/05/18 17:01 DC 12/05/18 18:11 50 MEQ Sodium Chloride 1,000 ml @ 500 mls/hr 1X ONCE 12/05/18 23:55 12/06/18 01:54 DC 12/06/18 00:00 500 MLS/HR Topiramate (Topamax) 50 mg BID 12/07/18 09:00 12/09/18 08:54 50 MG Vitamin D (Vitamin D3) 5,000 unit DAILY 12/07/18 09:00 12/09/18 08:55 5,000 UNIT Lab Laboratory Tests Test 12/08/18 16:27 12/08/18 20:52 12/09/18 04:33 12/09/18 07:57 Glucose (Fingerstick) 126 mg/dL (70-99) 142 mg/dL (70-99) 113 mg/dL (70-99) Sodium Level 142 mmol/L (136-145) Potassium Level 3.8 mmol/L (3.5-5.1) Chloride Level 107 mmol/L (98-107) Carbon Dioxide Level 24 mmol/L (21-32) Anion Gap 11 (6-14) Blood Urea Nitrogen 17 mg/dL (8-26) Creatinine 2.2 mg/dL (0.7-1.3) Estimated GFR (Cockcroft-Gault) 32.5 Glucose Level 112 mg/dL (70-99) Calcium Level 8.4 mg/dL (8.5-10.1) Test 12/09/18 11:47 Glucose (Fingerstick) 123 mg/dL (70-99) Results All relevant outside records, renal labs, imaging studies, telemetry/EKG's were reviewed. LIZA LOPEZ MD December 09, 2018 14:02
[2018-12-09] MEDS ORDERED: OXYC1TAB19 PO (14:04)
[2018-12-09] MEDS ORDERED: HYDR-2765 PO (14:34)
--- NOTE | 2018-12-09 14:56 | NUR ---
Discharge Note: PT DISCHARGED HOME WITH SELF CARE. PT LEFT FACILITY VIA PRIVATE VEHICLE WITH . PT STABLE UPON DISCHARGE. PT POST VOID RESIDUAL WAS 30 CC VIA BLADDER SCANNER. PT PIV'S PULLED FROM R FA AND R AC WITHOUT COMPLICATIONS BANDAGE APPLIED. PT EDUCATED ABOUT FOLLOW-UP APPOINTMENTS, LAB WORK, DICHARGE MEDICATIONS. NO CONCERNS VOICED AT THIS TIME. XIOMARA POWELL Discharge instructions and discharge home medications reviewed with Patient and a copy given. All questions have been answered and understanding verbalized.
--- NOTE | 2018-12-09 20:33 | PN ---
DATE: 12/09/2018 SUBJECTIVE: The patient is resting slightly propped up in bed, in no apparent respiratory distress. He is awake, alert. Denied any complaint. He is eating and drinking and tolerating his food without any difficulty. Had no nausea, no vomiting. His kidney function is steadily improving. His creatinine has come down from 14 to 2.2 and his BUN has come down from 115 to 17. Nursing staff did not voice any concern and stated that he had an uneventful night. PHYSICAL EXAMINATION: GENERAL: When I examined him, he looked well and was clearly in no apparent respiratory distress. He was pale, but not jaundiced or cyanosed. No thyromegaly. No jugular venous distension. No lower limb edema. VITAL SIGNS: His heart rate was 71, blood pressure was 101/65, temperature was 98.5, respiratory rate was 18 and oxygen saturation was 93%. HEAD, EYES, EARS, NOSE AND THROAT: Showed normocephalic, atraumatic. NECK: Supple. HEART: Showed normal first and second heart sounds. No gallop, rub or murmur. CHEST: Clear to auscultation. No crepitation or rhonchi. ABDOMEN: Distended, soft, nontender. No guarding or rigidity. No organomegaly. All hernial orifices intact. Bowel sounds normal. NEUROLOGIC: He was awake, alert, responding appropriately. All cranial nerves intact. He moves extremities without difficulty. He ambulates without assistance or assistive devices. His intake was 3830, output was 5700. LABORATORY DATA: As of yesterday, his white cell count was 10,000, hemoglobin 10, hematocrit 29, MCV 92 and platelet count of 195,000. Serum sodium was 142, potassium 3.8, chloride 107, bicarbonate 24, anion gap of 11, BUN 17, creatinine 2.2, estimated GFR was 32 mL per minute. His glucose was 112, calcium was 8.4. ASSESSMENT: 1. Acute kidney injury with marked hyperkalemia, high anion gap metabolic acidosis, resolved. Potassium is actually 3.8. His creatinine is 2.2 and BUN is 17. The patient has been on ibuprofen 600 mg 4 times a day for at least 4-5 days. He is also on Invokana and metformin. 2. The patient has multiple other medical problems including: A. Crohn's disease. B. Recurrent pancreatitis. C. Hyperlipidemia. D. Migraine headache. E. Depression. F. Gastroesophageal reflux disease. G. Type 2 diabetes mellitus for which he is on Invokana as well as pioglitazone. H. He is also on Humira 40 mg subcutaneously every 2 weeks for his Crohn's disease. PLAN: My plan today is to discontinue his IV hydromorphone and IV Reglan. Discontinue his Simmons catheter and obviously await the evaluation by the tank inspector and if they were okay with him to be discharged, I will discharge him to follow with Brody Apodaca, his primary care physician. YOUSUF TAVAREZ MD DR: RUIZ/luis JOB#: [id number] / [id number]
[2018-12-09] MEDS ORDERED: ATORVASTATIN CALCIUM 40 MG TABLET. PO SCH (21:00)
[2018-12-09] MEDS ORDERED: ASPIRIN CHEWABLE 81 MG TABLET. PO SCH (21:00)
== END 2018-12-09 15:23 | disposition home or self-care (01) | DRG 640 ==
LOC: 5 NORTH 12:47 → 1 WEST ICU 19:23 → 5 NORTH 12-08 13:41
PROVIDERS: ADMIT Internal Medicine; ATTEND Internal Medicine
DX: E87.5 Hyperkalemia (principal); N17.0 Acute kidney failure with tubular necrosis; K50.90 Crohn's disease, unspecified, without complications; K86.1 Other chronic pancreatitis; E87.4 Mixed disorder of acid-base balance; E11.9 Type 2 diabetes mellitus without complications; E78.5 Hyperlipidemia, unspecified; E86.9 Volume depletion, unspecified; E87.6 Hypokalemia; F17.210 Nicotine dependence, cigarettes, uncomplicated; F32.9 Major depressive disorder, single episode, unspecified; G43.909 Migraine, unspecified, not intractable, without status migrainosus; K21.9 Gastro-esophageal reflux disease without esophagitis; K22.70 Barrett's esophagus without dysplasia; F41.9 Anxiety disorder, unspecified; Z88.8 Allergy status to other drugs, medicaments and biological substances
CPT/HCPCS: 36415; 76700; 80048; 80053; 81001; 82550; 82962; 83690; 83735; 84100; 84132; 84156; 85025; 85027; 87641; G0480; J0610; J1170; J1815; J2405; J2765; J3010; J3475; J3480; J7030; J7042

== ENCOUNTER 2018-12-21 19:22 | Inpatient (IN) | payer BC, MEDICARE ==
[~2018-12-21] VITALS: Ht 177.8 cm; Wt 97.7 kg
[~2018-12-21 19:22] MED LIST changes: +ASCO10002 PO; +ASPI-630 PO; +BIFI4CAP PO; +BUSP15TA PO; +CANA1TAB7 PO; +CRESTOR40 MG PO; +DULO60CA6 PO; +HYDR-2765 PO; +LIPA1CAP8 PO; +METH-38 PO; +METH750T2 PO; +OLAN10TA9 PO; +OMEG1CAP27 PO; +OXYC1TAB19 PO; +PIOG30TA41 PO
[2018-12-21] MEDS ORDERED: fentaNYL PF VIAL 100 MCG/2 ML VIAL IV ONE (19:30)
[2018-12-21] MEDS ORDERED: IV NORMAL SALINE 1000ML BAG 1,000 ML IV ONE (19:30)
[2018-12-21] MEDS ORDERED: IOHEXOL 300 MG/ML 100ML VIAL. IV ONE (20:00)
[2018-12-21] MEDS: IV NORMAL SALINE 1000ML BAG 1,000 ML IV SCH (20:08)
[2018-12-21] MEDS ORDERED: ONDANSETRON PF 4 MG/2 ML VIAL. IV PRN ×2 (20:15→20:45)
[2018-12-21] MEDS ORDERED: CONTRAST GIVEN. MC PRN (20:15)
[2018-12-21] MEDS ORDERED: IV RINGERS,LACTATED 1000ML 1,000 ML IV SCH (20:41)
[2018-12-21] MEDS ORDERED: PROCHLORPERAZINE 10 MG/2 ML VIAL. IV PRN (20:45)
[2018-12-21] MEDS ORDERED: fentaNYL PF VIAL 100 MCG/2 ML VIAL IV PRN ×2 (20:45)
[2018-12-21] MEDS ORDERED: ROCURONIUM 50 MG/5 ML VIAL. ONE (20:50)
[2018-12-21] MEDS ORDERED: fentaNYL PF VIAL 100 MCG/2 ML VIAL ONE (20:50)
[2018-12-21] MEDS ORDERED: CLINDAMYCIN 900MG PREMIX 50 ML IV PRN (20:58)
[2018-12-21] MEDS ORDERED: LIDOCAINE 1% PF 30 ML VIAL. ONE (21:00)
[2018-12-21] MEDS ORDERED: BUPIVACAINE MPF 0.5% 30 ML VIAL. ONE (21:00)
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
[2018-12-21] MEDS ORDERED: CLINDAMYCIN PREMIX 900 MG/50 ML BAG IV ONE (21:24)
[2018-12-21] MEDS ORDERED: DIPHTH,PERTUSS(ACELL),TET TOX 0.5 ML DISP.SYRIN. VAX IM ONE (21:30)
[2018-12-21] MEDS ORDERED: DESFLURANE > 120 MINUTES IH ONE (22:07)
[2018-12-21] MEDS ORDERED: PROPOFOL 20 ML IV ONE (22:07)
[2018-12-21] MEDS ORDERED: PHENYLEPHRINE 10 MG/ML VIAL. ONE (22:07)
[2018-12-21] MEDS ORDERED: ONDANSETRON PF 4 MG/2 ML VIAL. ONE (22:07)
[2018-12-21] MEDS ORDERED: LIDOCAINE 2% PF 5 ML VIAL. ONE ×2 (22:07→23:03)
[2018-12-21] MEDS ORDERED: DEXAMETHASONE SOD PHOS 4 MG/ML VIAL ONE (22:08)
[2018-12-21] MEDS ORDERED: GLYCOPYRROLATE 1 MG/5 ML VIAL. ONE (22:29)
[2018-12-21] MEDS ORDERED: NEOSTIGMINE METHYLSULFATE 5 MG/5 ML SYRINGE. ONE (22:29)
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
[2018-12-21 23:50] VITALS: BP 130/88
[2018-12-22] VITALS (12 sets, daily range): BP systolic 105–148; BP diastolic 63–96
--- NOTE | 2018-12-22 01:00 | NUR ---
ADMIT NOTE The patient, MELO POWELL, 43 y/o, M admitted by PHUONG BROWN III, DO, was given written information regarding hospital policies, unit procedures and contact persons. Pt drowsy post-op but A&Ox 4 upon arrival to unit at 2340. Pt afebrile, VSS, and rating pain at 10/10 on scale. Pt admission assessment complete, admit packet reviewed, home med list reviewed, and plan of care discussed. Per pt. and , pt is NOT allergic to morphine and requested it to be removed from allergy list. Valuables were checked; cell phone and Bluetooth earpiece for phone left in room w/ patient. Patient's took all other belongings home. Pt resting in bed, SCDs in place, call light within reach, bed in lowest/locked position, and family at bedside, will continue to monitor.
[2018-12-22] MEDS: fentaNYL PF VIAL 100 MCG/2 ML VIAL IV PRN ×6 (01:03→14:19)
[2018-12-22] MEDS: CLINDAMYCIN 900MG PREMIX 50 ML IV SCH ×3 (05:28→20:50)
[2018-12-22 06:05] LABS: BASO % 0 % (0-3); EOS % 0 % (0-3); HEMATOCRIT 25.3 % (39.0-53.0); HEMOGLOBIN 8.6 g/dL (13.0-17.5); LYMPH # 1.5 x10^3/uL (1.0-4.8); LYMPH % 13 % (24-48); MEAN CORPUSCULAR HEMOGLOBIN 31 pg (25-35); MEAN CORPUSCULAR HGB CONC 34 g/dL (31-37); MEAN CORPUSCULAR VOLUME 92 fL (79-100); MONO # 0.5 x10^3/uL (0.0-1.1); MONO % 4 % (0-9); NEUT # 9.5 x10^3uL (1.8-7.7); NEUT % 83 % (31-73); PLATELET COUNT 183 x10^3/uL (140-400); RED BLOOD COUNT 2.74 x10^6/uL (4.30-5.70); RED CELL DISTRIBUTION WIDTH 14.1 % (11.5-14.5); WHITE BLOOD COUNT 11.4 x10^3/uL (4.0-11.0)
[2018-12-22 06:30] LABS: ALBUMIN/GLOBULIN RATIO 0.9 (1.0-1.7); CALCIUM 8.2 mg/dL (8.5-10.1); CREATININE 1.5 mg/dL (0.7-1.3); GFR 50.6; POTASSIUM 4.4 mmol/L (3.5-5.1); TOTAL BILIRUBIN 0.4 mg/dL (0.2-1.0); TOTAL PROTEIN 6.2 g/dL (6.4-8.2)
[2018-12-22] MEDS ORDERED: ERGO1TAB10 PO (06:44)
[2018-12-22] MEDS ORDERED: METH-38 PO (06:44)
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
[2018-12-22] MEDS ORDERED: [UNRECOGNIZED DRUG - OTHER] PO PRN (09:30)
[2018-12-22] MEDS ORDERED: ERGOTAMINE TARTRATE PO PRN (09:30)
[2018-12-22] MEDS ORDERED: CAFFEINE PO PRN (09:30)
[2018-12-22] MEDS ORDERED: METHOCARBAMOL 750 MG TABLET PO PRN (09:30)
--- NOTE | 2018-12-22 09:32 | NUR ---
SW following for discharge planning. Discussed with RN, pt from home with . RN advised no SW needs at this time and anticipates possible discharge home with self care tomorrow (12/23/18). SW will continue to follow.
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
[2018-12-22] MEDS: ASCORBIC ACID 500 MG TABLET PO SCH (11:57)
[2018-12-22] MEDS: LIPASE/PROTEAS/AMYLAS 10/32/42 CAPSULE.DR. PO SCH ×2 (11:58→18:09)
[2018-12-22] MEDS: PIOGLITAZONE 15 MG TABLET. PO SCH (11:59)
[2018-12-22] MEDS: oxyCODONE/APAP 7.5/325 1 TAB TABLET PO PRN ×2 (12:00→20:49)
[2018-12-22] MEDS: MULTIVITAMIN with MINERAL TABLET. PO SCH (12:00)
[2018-12-22] MEDS: PANTOPRAZOLE 40 MG TABLET.DR. PO SCH (12:00)
[2018-12-22] MEDS: IV NORMAL SALINE 1000ML BAG 1,000 ML IV SCH (12:08)
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
[2018-12-22] MEDS ORDERED: oxyCODONE IR 5 MG TABLET PO ONE (15:45)
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
[2018-12-22] MEDS ORDERED: KETOROLAC 15 MG/ML VIAL. IV ONE (16:00)
[2018-12-22] MEDS ORDERED: CANAGLIFLOZIN PO SCH (17:00)
[2018-12-22] MEDS ORDERED: METFORMIN HCL PO SCH (17:00)
[2018-12-22] MEDS ORDERED: [UNRECOGNIZED DRUG - OTHER] PO SCH (17:00)
[2018-12-22] MEDS: TOPIRAMATE 25 MG TABLET. PO SCH (20:50)
[2018-12-22] MEDS: busPIRone 5 MG TABLET. PO SCH (20:50)
[2018-12-22] MEDS ORDERED: ASPIRIN CHEWABLE 81 MG TABLET. PO SCH (21:00)
[2018-12-22] MEDS ORDERED: LACTOBACILLUS RHAMNOSUS GG 1 CAPSULE. PO SCH (21:00)
[2018-12-22] MEDS ORDERED: ATORVASTATIN CALCIUM 40 MG TABLET. PO SCH (21:00)
[2018-12-22] MEDS ORDERED: DULoxetine HCL 30 MG CAPSULE.DR PO SCH (21:00)
[2018-12-22] MEDS ORDERED: OMEGA-3 FATTY ACIDS/FISH OIL 1,000 MG CAPSULE. PO SCH (21:00)
[2018-12-22] MEDS ORDERED: OLANZapine 5 MG TABLET PO SCH (21:00)
[2018-12-22] MEDS: oxyCODONE IR 5 MG TABLET PO PRN (22:46)
[2018-12-23 03:00] VITALS: BP 104/62
[2018-12-23] MEDS: oxyCODONE/APAP 7.5/325 1 TAB TABLET PO PRN ×2 (03:17→08:34)
[2018-12-23 04:16] LABS: BASO # 0.1 x10^3/uL (0.0-0.2); BASO % 1 % (0-3); EOS # 0.3 x10^3/uL (0.0-0.7); EOS % 2 % (0-3); HEMATOCRIT 25.7 % (39.0-53.0); HEMOGLOBIN 8.6 g/dL (13.0-17.5); LYMPH # 4.5 x10^3/uL (1.0-4.8); LYMPH % 35 % (24-48); MEAN CORPUSCULAR HEMOGLOBIN 31 pg (25-35); MEAN CORPUSCULAR HGB CONC 33 g/dL (31-37); MEAN CORPUSCULAR VOLUME 94 fL (79-100); MONO # 0.8 x10^3/uL (0.0-1.1); MONO % 6 % (0-9); NEUT # 7.2 x10^3uL (1.8-7.7); NEUT % 56 % (31-73); PLATELET COUNT 165 x10^3/uL (140-400); RED BLOOD COUNT 2.75 x10^6/uL (4.30-5.70); RED CELL DISTRIBUTION WIDTH 14.5 % (11.5-14.5); WHITE BLOOD COUNT 12.8 x10^3/uL (4.0-11.0)
[2018-12-23 04:46] LABS: ALBUMIN 3.1 g/dL (3.4-5.0); ALBUMIN/GLOBULIN RATIO 0.9 (1.0-1.7); CALCIUM 8.9 mg/dL (8.5-10.1); CREATININE 1.4 mg/dL (0.7-1.3); GFR 54.8; POTASSIUM 3.9 mmol/L (3.5-5.1); TOTAL BILIRUBIN 0.3 mg/dL (0.2-1.0); TOTAL PROTEIN 6.6 g/dL (6.4-8.2)
[2018-12-23] MEDS: PANTOPRAZOLE 40 MG TABLET.DR. PO SCH (05:34)
[2018-12-23] MEDS: CLINDAMYCIN 900MG PREMIX 50 ML IV SCH ×2 (05:34→12:20)
[2018-12-23] MEDS: oxyCODONE IR 5 MG TABLET PO PRN ×2 (05:35→11:44)
[2018-12-23 07:55] VITALS: BP 94/63
[2018-12-23] MEDS: ASCORBIC ACID 500 MG TABLET PO SCH (08:34)
[2018-12-23] MEDS: MULTIVITAMIN with MINERAL TABLET. PO SCH (08:34)
[2018-12-23] MEDS: LIPASE/PROTEAS/AMYLAS 10/32/42 CAPSULE.DR. PO SCH ×2 (08:34→12:20)
[2018-12-23] MEDS: PIOGLITAZONE 15 MG TABLET. PO SCH (08:34)
[2018-12-23] MEDS: TOPIRAMATE 25 MG TABLET. PO SCH (08:34)
[2018-12-23] MEDS: busPIRone 5 MG TABLET. PO SCH (08:35)
--- NOTE | 2018-12-23 10:57 | NUR ---
SW following. Discussed with RN, pt possibly discharging home today with self care. No SW needs identified.
[2018-12-23 11:00] VITALS: BP 96/56
[2018-12-23] MEDS ORDERED: HYDR-2765 PO (12:12)
[2018-12-23] MEDS ORDERED: KETOROLAC 15 MG/ML VIAL. IV ONE (12:15)
--- NOTE | 2018-12-23 13:13 | NUR ---
Dr. Ana overton re: L shoulder dressing for d/c home.
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
--- NOTE | 2018-12-23 14:29 | NUR ---
Pt. discharged to home with Rx, verbalized understanding of discharge instructions. Aquacel ag place to L ant and L post shoulder, CDI. L arm sling in place.
[2018-12-24] MEDS ORDERED: metFORMIN 500 MG TABLET PO SCH (08:00)
== END 2018-12-23 14:25 | disposition home or self-care (01) | DRG 516 ==
LOC: ER 19:22 → EEVIPCON 19:22 → 4 NORTH 20:00
PROVIDERS: ADMIT Internal Medicine; ATTEND Internal Medicine
PROC: 0PBB0ZZ Excision of Left Clavicle, Open Approach (ICD-10-PCS; 2018-12-21)
PROC: 0PSB04Z Reposition Left Clavicle with Internal Fixation Device, Open Approach (ICD-10-PCS; principal; 2018-12-21 20:36)
DX: S42.032B Displaced fracture of lateral end of left clavicle, initial encounter for open fracture (principal); K50.90 Crohn's disease, unspecified, without complications; S41.032A Puncture wound without foreign body of left shoulder, initial encounter; I10 Essential (primary) hypertension; E11.9 Type 2 diabetes mellitus without complications; E78.5 Hyperlipidemia, unspecified; F31.9 Bipolar disorder, unspecified; E66.9 Obesity, unspecified; K21.9 Gastro-esophageal reflux disease without esophagitis; W34.00XA Accidental discharge from unspecified firearms or gun, initial encounter; Y93.89 Activity, other specified; Y92.89 Other specified places as the place of occurrence of the external cause; Y99.8 Other external cause status; Z90.49 Acquired absence of other specified parts of digestive tract; Z88.1 Allergy status to other antibiotic agents; Z88.5 Allergy status to narcotic agent; Z83.3 Family history of diabetes mellitus; Z82.49 Family history of ischemic heart disease and other diseases of the circulatory system; Z68.30 Body mass index [BMI] 30.0-30.9, adult
CPT/HCPCS: 36415; 71260; 73000; 80053; 82962; 85025; 90471; 90715; 96361; 96374; A7015; C1713; C1887; J1100; J1885; J2001; J2405; J2704; J2710; J3010; J3490; J7030; Q9967; 99285-25

== ENCOUNTER 2019-04-29 06:36 | Inpatient (IN) | payer BC, MEDICARE ==
[~2019-04-29] VITALS: Ht 167.6 cm; Wt 92.9 kg
[~2019-04-29 06:36] MED LIST changes: +CLINDAMYCIN 900MG PREMIX 50 ML IV PRN; +ERGO1TAB10 PO; +OMEP40CA45 PO; -OMEP40CA5 PO
[2019-04-29] MEDS ORDERED: LIDOCAINE 1% PF 2 ML VIAL. ID PRN (07:00)
[2019-04-29] MEDS ORDERED: fentaNYL PF VIAL 100 MCG/2 ML VIAL IV PRN ×3 (07:00→07:45)
[2019-04-29] MEDS ORDERED: MORPHINE SULFATE 2 MG/ML VIAL. IV PRN (07:00)
[2019-04-29] MEDS ORDERED: PROCHLORPERAZINE 10 MG/2 ML VIAL. IV PRN (07:00)
[2019-04-29] MEDS ORDERED: ONDANSETRON PF 4 MG/2 ML VIAL. IV PRN ×2 (07:00→07:45)
[2019-04-29] MEDS ORDERED: IV RINGERS,LACTATED 1000ML 1,000 ML IV SCH (07:00)
[2019-04-29] MEDS ORDERED: HYDROmorphone 2 MG/ML VIAL IV PRN (07:00)
[2019-04-29] MEDS ORDERED: ROCURONIUM 50 MG/5 ML VIAL. ONE (07:19)
[2019-04-29] MEDS ORDERED: fentaNYL PF VIAL 100 MCG/2 ML VIAL ONE (07:19)
[2019-04-29] MEDS ORDERED: KETOROLAC 30 MG/ML VIAL. ONE (07:20)
[2019-04-29] MEDS ORDERED: DEXAMETHASONE SOD PHOS 4 MG/ML VIAL ONE ×3 (07:20→09:46)
[2019-04-29] MEDS ORDERED: SEVOFLURANE 61 TO 120 MINUTES. IH ONE ×2 (07:20→08:10)
[2019-04-29] MEDS ORDERED: PROPOFOL 20 ML IV ONE (07:20)
[2019-04-29] MEDS ORDERED: ONDANSETRON PF 4 MG/2 ML VIAL. ONE (07:20)
[2019-04-29] MEDS ORDERED: PHENYLEPHRINE 10 MG/ML VIAL. ONE (07:23)
[2019-04-29] MEDS ORDERED: LIDOCAINE 1% 20 ML VIAL. ONE (07:30)
[2019-04-29] MEDS ORDERED: BUPIVACAINE MPF 0.5% 30 ML VIAL. ONE ×2 (07:30→09:43)
[2019-04-29] MEDS: IV 1/2 NORMAL SALINE 1,000 ML IV SCH ×2 (07:40→21:00)
[2019-04-29] MEDS ORDERED: POLYETHYLENE GLYCOL 3350 17 GM PACKET. PO PRN (07:45)
[2019-04-29] MEDS ORDERED: MORPHINE SULFATE 4 MG/ML VIAL. IV PRN (07:45)
[2019-04-29] MEDS ORDERED: oxyCODONE IR 5 MG TABLET PO PRN (07:45)
[2019-04-29] MEDS ORDERED: DEXTROSE 50% 25 GM / 50ML DISP.SYRIN. IV PRN (07:45)
[2019-04-29] MEDS ORDERED: CLINDAMYCIN 900MG PREMIX 50 ML IV SCH (08:00)
[2019-04-29] MEDS: METHOCARBAMOL 750 MG TABLET PO SCH ×4 (09:00→20:44)
[2019-04-29] MEDS ORDERED: CHOLECALCIFEROL (VITAMIN D3) 1,000 UNIT TABLET PO SCH (09:00)
[2019-04-29] MEDS ORDERED: NEOSTIGMINE METHYLSULFATE 5 MG/5 ML SYRINGE. ONE (09:28)
[2019-04-29] MEDS ORDERED: GLYCOPYRROLATE 1 MG/5 ML VIAL. ONE (09:29)
[2019-04-29] MEDS ORDERED: SEVOFLURANE > 120 MINUTES. IH ONE (09:31)
[2019-04-29] MEDS ORDERED: EPINEPHrine 1 MG/ML VIAL ONE (09:43)
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
--- NOTE | 2019-04-29 11:35 | NUR ---
Arrived to unit by w/c from PACU. Drowsy but awakens easily. Right shoulder dressing intact with sling on. Able to wiggle fingers, warm to touch and radial pulses + bilaterally. Ice pack to right shoulder. Oriented to room and controls. Side rails up x's 2 with call light in reach. Spouse at bedside. VS stable. Cont. monitor.
[2019-04-29 11:45] VITALS: BP 131/86
[2019-04-29] MEDS: CLINDAMYCIN 900MG PREMIX 50 ML IV SCH ×2 (13:51→20:12)
[2019-04-29] MEDS: MORPHINE SULFATE 2 MG/ML VIAL. IV PRN ×2 (13:51→18:15)
[2019-04-29] MEDS: ASCORBIC ACID 500 MG TABLET PO SCH (13:53)
[2019-04-29] MEDS: TOPIRAMATE 25 MG TABLET. PO SCH ×2 (13:53→20:45)
[2019-04-29] MEDS: busPIRone 5 MG TABLET. PO SCH ×2 (13:53→20:45)
[2019-04-29] MEDS: LIPASE/PROTEAS/AMYLAS 10/32/42 CAPSULE.DR. PO SCH ×2 (13:53→16:59)
[2019-04-29] MEDS: PANTOPRAZOLE 40 MG TABLET.DR. PO SCH (13:54)
[2019-04-29] MEDS: CHOLECALCIFEROL (VITAMIN D3) 5,000 UNIT CAPSULE PO SCH (13:54)
[2019-04-29] MEDS: SENNOSIDES/DOCUSATE 8.6/50MG TABLET. PO SCH (13:54)
[2019-04-29] MEDS: MULTIVITAMIN with MINERAL TABLET. PO SCH (13:54)
[2019-04-29 14:45] VITALS: BP 129/79
[2019-04-29 17:41] VITALS: BP 130/85
--- NOTE | 2019-04-29 17:43 | NUR ---
Farhad has slept most of the afternoon. fingers remain warm to touch, good motion and sensation. left arm remains in sling. when awake continues to complain that his pain is 9-10. medicated with morphine x1 and Roxicodone x1. he is eating well. dressing to left shoulder is clean dry and intact. has been at bedside today
--- NOTE | 2019-04-29 18:42 | NUR ---
Farhad continues to complain that he is numb in his jaw area and his fingers, but he is having pain in the incisional area. he was given Roxicodone and the pain went up medicated with morphine 2mg iv. informed we would try the Lortab next ; verbalized understanding. brink good pulse, motion and is warm to the touch. remains at bedside.
[2019-04-29] MEDS ORDERED: DULoxetine HCL 30 MG CAPSULE.DR PO SCH (21:00)
[2019-04-29] MEDS ORDERED: ATORVASTATIN CALCIUM 40 MG TABLET. PO SCH (21:00)
[2019-04-29] MEDS: HYDROcodone/APAP 10/325 1 TAB TABLET PO PRN (22:44)
[2019-04-29 22:46] VITALS: BP 138/72
[2019-04-30] MEDS: CLINDAMYCIN 900MG PREMIX 50 ML IV SCH (02:10)
[2019-04-30 03:00] VITALS: BP 105/62
[2019-04-30] MEDS ORDERED: MAGNESIUM HYDROXIDE 2,400 MG/30 ML ORAL.SUSP. PO PRN (06:00)
[2019-04-30 06:08] VITALS: BP 109/65
[2019-04-30] MEDS: PANTOPRAZOLE 40 MG TABLET.DR. PO SCH (06:09)
[2019-04-30] MEDS: HYDROcodone/APAP 10/325 1 TAB TABLET PO PRN ×2 (06:10→09:55)
--- NOTE | 2019-04-30 06:30 | NUR ---
Lortab 10 managing his pain. Slept well. C/o numbness to left jaw and neck but states his left bicep feeling is back.
[2019-04-30] MEDS: LIPASE/PROTEAS/AMYLAS 10/32/42 CAPSULE.DR. PO SCH ×2 (07:51→12:06)
[2019-04-30] MEDS: busPIRone 5 MG TABLET. PO SCH (07:52)
[2019-04-30] MEDS: ASCORBIC ACID 500 MG TABLET PO SCH (07:52)
[2019-04-30] MEDS: CHOLECALCIFEROL (VITAMIN D3) 5,000 UNIT CAPSULE PO SCH (07:52)
[2019-04-30] MEDS: SENNOSIDES/DOCUSATE 8.6/50MG TABLET. PO SCH (07:52)
[2019-04-30] MEDS: METHOCARBAMOL 750 MG TABLET PO SCH ×2 (07:52→12:06)
[2019-04-30] MEDS: MULTIVITAMIN with MINERAL TABLET. PO SCH (07:52)
--- NOTE | 2019-04-30 08:20 | DISCH ---
DISCHARGE INSTRUCTIONS Condition on Discharge Condition on Discharge: Stable Activity After Discharge Activity Instructions for Disc: Activity as tolerated Other activity instructions: left arm to remain in sling, no use of left arm Bathing Instructions: Shower-keep dressing dry Lifting Instructions after Dis: No heavy lifting Driving Instructions after Dis: Do not drive Weight Bearing Status after Di: Non weight bearing Diet after Discharge Diet after Discharge: Diabetic No Calorie Level Diet Texture: Regular Liquid Texture: Thin Liquid Swallowing Supervision: None needed Wound Incision Care Wound/Incision Care: Keep wound/cast CDI, Do not change dressing Checks after Discharge Checks after discharge: Check blood press - daily, Check blood sugar, ac/hs, Check your Temp as needed Contacting the DR. after DC Call your doctor for: Concerns you may have Follow-Up Follow up with: Kervin in 2 weeks BRITTON URIOSTEGUI II, MD Apr 30, 2019 08:20
--- NOTE | 2019-04-30 08:22 | PDOC ---
ORTHO PROGRESS NOTES Subjective He tells me that his pain is doing okay. Denies any abnormal sensations in his hand. He still feels some numbness on the left side of his neck. Vitals Vital Signs Date Time Temp Pulse Resp B/P (MAP) Pulse Ox O2 Delivery O2 Flow Rate FiO2 04/30/19 06:59 Room Air 04/30/19 06:10 20 04/30/19 06:08 98.9 101 109/65 (80) 94 98.9 04/30/19 03:00 10.0 Notes He is awake and alert. Normal motor and sensation are present left upper extremity. The sling is in place. Incision is clean and dry Assessment and Plan I would like to see at least 1 negative culture report prior to letting him go today. I discussed nonweightbearing and rest of the left upper extremity. His questions were answered. BRITTON URIOSTEGUI II, MD Apr 30, 2019 08:22
[2019-04-30] MEDS: TOPIRAMATE 25 MG TABLET. PO SCH (09:55)
[2019-04-30] MEDS ORDERED: DOCU-109 PO (10:17)
[2019-04-30] MEDS ORDERED: HYDR-2769 PO (10:18)
[2019-04-30] MEDS ORDERED: ONDA8TAB9 PO (10:19)
[2019-04-30] MEDS: IV 1/2 NORMAL SALINE 1,000 ML IV SCH (10:20)
[2019-04-30 11:35] VITALS: BP 107/54
--- NOTE | 2019-04-30 13:35 | NUR ---
Discharge instructions given. Answered questions and concerns. Verbalized understanding. Prescriptions given to spouse yesterday. Pt discharged home accompanied by friend.
[2019-04-30] MEDS ORDERED: BISACODYL 10 MG SUPP.RECT. PR PRN (16:00)
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
== END 2019-04-30 13:35 | disposition home or self-care (01) | DRG 497 ==
LOC: SURG 06:36 → 4 SOUTHEST 11:23
PROVIDERS: ADMIT Orthopaedic Surgery Sports Medicine; ATTEND Orthopaedic Surgery Sports Medicine
PROC: 0PPB04Z Removal of Internal Fixation Device from Left Clavicle, Open Approach (ICD-10-PCS; 2019-04-29)
PROC: 0PSB04Z Reposition Left Clavicle with Internal Fixation Device, Open Approach (ICD-10-PCS; principal; 2019-04-29 08:00)
DX: T84.218A Breakdown (mechanical) of internal fixation device of other bones, initial encounter (principal); S42.002A Fracture of unspecified part of left clavicle, initial encounter for closed fracture; X58.XXXA Exposure to other specified factors, initial encounter; Y93.89 Activity, other specified; Y92.89 Other specified places as the place of occurrence of the external cause; Y99.8 Other external cause status
CPT/HCPCS: 76000; 87071; 87075; 87102; 87116; A7015; C1713; J0171; J1100; J1885; J2270; J2405; J2704; J2710; J3010; J3490; J7120; 97530; 97535; G0378

== ENCOUNTER → 2021-07-05 | Outpatient (CLI) | payer BC, MEDICARE ==
[~2021-07-05] MED LIST changes: +ASCO100019 PO; -ASCO10002 PO; -CLINDAMYCIN 900MG PREMIX 50 ML IV PRN; +DOCU-109 PO; -DULO60CA6 PO; +DULO60CA7 PO; +GADOTERATE 5 MMOL/10ML VIAL. IVP ONE; +HYDR-2769 PO; +METH-562 PO; -METH750T2 PO; +OLAN10TA69 PO; -OLAN10TA9 PO; +OLAN5TAB67 PO; -OLAN5TAB9 PO; -OMEP40CA45 PO; +OMEP40CA7 PO; +ONDA8TAB9 PO; +SERT-268 PO; -SERT100T8 PO
--- NOTE | 2021-07-06 10:33 | KCIC ---
EXAMINATION: MRI abdomen with and without IV contrast. INDICATION:46 years, Male, cystic lesion in the kidneys and liver. Further evaluation.. TECHNIQUE: Multiplanar multisequence MRI of the abdomen was performed. COMPARISON: MRI dated 09/23/2017. FINDINGS: LOWER CHEST: Unremarkable. ABDOMEN: Borderline hepatomegaly with moderate to severe steatosis. Stable two right hepatic lobe hemangiomas measuring up to 2.7 cm. Cholecystectomy. No biliary ductal dilation. Normal spleen. Unremarkable panc reas with no pancreatic ductal dilation. No adrenal nodule. Normal symmetric enhancement of the kidneys with no hydronephrosis. Multiple variable size bright T1/ dark T2 signal intensity lesions in both renal cortices without enhancement or diffusion restriction. The majority of the lesions are slightly increasing in size since September 2017, for example the larges t right interpolar cystic lesion now measures 3.4 cm, previously 3.4 cm. No bowel dilation. Decreasing size of retrocaval enhancing soft tissue nodule measures 2.2 x 1.4 cm, previously 2.3 x 2.1 cm findings, may represent a prominent nonspecific lymph node. No ascites. Alexa l caliber abdominal. Mesenteric arteries and portal vein are patent. MUSCULOSKELETAL: Unremarkable. IMPRESSION: 1. Multiple bilateral renal cortical complex hemorrhagic/proteinaceous cysts, slightly increasing in size since 2018. 2. Moderate to severe diffuse hepatic steatosis with similar right hepatic lobe hemangiomas. Electronically signed by: Chai Villela MD (07/06/2021 10:31 AM) [id number]
== END ==
LOC: KCIC MRI 12:27
PROVIDERS: ATTEND Physician Assistant
DX: K76.0 Fatty (change of) liver, not elsewhere classified (principal); K76.9 Liver disease, unspecified; N28.9 Disorder of kidney and ureter, unspecified; M79.89 Other specified soft tissue disorders; D18.09 Hemangioma of other sites; K66.8 Other specified disorders of peritoneum; Z90.49 Acquired absence of other specified parts of digestive tract
CPT/HCPCS: 74183; 82565; A9575

== ENCOUNTER → 2021-07-19 | Outpatient (CLI) | payer BC, MEDICARE ==
[~2021-07-19] MED LIST changes: -GADOTERATE 5 MMOL/10ML VIAL. IVP ONE
--- NOTE | 2021-07-19 16:26 | KCIC ---
EXAMINATION: Magnetic resonance imaging (MRI) of the lumbar spine without contrast 07/19/2021 3:05 PM HISTORY: Acute Low back pain TECHNIQUE: Multiplanar multi-weighted MRI of the lumbar spine was performed without intravenous contr ast using the standard lumbar spine protocol. Contrast information: None administered. COMPARISON: None available. FINDINGS: There is minimal retrolisthesis of L5 on S1 measuring 2 mm. 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 Superior endplate Schmorl's nodes are identified at L1 and L2 without significant height loss. Vertebral bodies demonstrate normal signal intensity on all seque nces. There are no compression fractures. The conus medullaris terminates at the level of L1. The d istal spinal cord signal intensity is normal. Mild disc height loss L5-S1 with disc desiccation and annular fissure. Indeterminate lesion involving the right interpolar kidney. Stable renal proteinaceo us or hemorrhagic cysts. The aorta is normal. T12-L1: Mild disc bulge. Mild facet arthropathy. Mild bilateral neuroforaminal stenosis. No significa nt spinal canal stenosis. L1-L2: The disc is normal in configuration. There is no facet arthropathy. There is no neuroforaminal stenosis. There is no spinal canal stenosis. L2-L3: The disc is normal in configuration. There is no facet arthropathy. There is no neuroforaminal stenosis. There is no spinal canal stenosis. L3-L4: The disc is normal in configuration. There is mild facet arthropathy. There is no neuroforamin al stenosis. There is no spinal canal stenosis. L4-L5: The disc is normal in configuration. There is mild facet arthropathy. There is mild bilateral neuroforaminal stenosis. There is no spinal canal stenosis. L5-S1: There is a disc bulge with left central disc protrusion. This narrows the left lateral recess. There is mild right and moderate left facet arthropathy. There is mild to moderate left neuroforamin al stenosis. There is no spinal canal stenosis. IMPRESSION: Mild degenerative changes of the lumbar spine as described in detail above. Electronically signed by: Lucie Newman MD (07/19/2021 4:24 PM) [id number]
== END ==
LOC: KCIC MRI 14:07
PROVIDERS: ATTEND Physician Assistant
DX: M47.816 Spondylosis without myelopathy or radiculopathy, lumbar region (principal); M51.27 Other intervertebral disc displacement, lumbosacral region; M48.8X7 Other specified spondylopathies, lumbosacral region; M48.07 Spinal stenosis, lumbosacral region; M51.46 Schmorl's nodes, lumbar region; M51.37 Other intervertebral disc degeneration, lumbosacral region
CPT/HCPCS: 72148

== ENCOUNTER 2021-10-11 00:29 | Emergency (ER) | payer BC, MEDICARE ==
[~2021-10-11] VITALS: Ht 167.6 cm; Wt 85.0 kg
[2021-10-11 00:40] VITALS: BP 92/68
--- NOTE | 2021-10-11 01:15 | PHYS DOC ---
Past Medical History Past Medical History: Anxiety, Bipolar, Depression, Diabetes-Type II, GERD, High Cholesterol, Migraines, Pancreatitis Additional Past Medical Histor: Chrohns Past Surgical History: Appendectomy, Cholecystectomy, Other Additional Past Surgical Histo: right wrist surg, left knee surg with metal Smoking Status: Current Every Day Smoker Alcohol Use: None Drug Use: None General Adult EDM: Chief Complaint: WRIST PAIN HPI: HPI: 46-year-old male presents with a chief complaint of right wrist pain. Patient states on September 29 he slipped and fell on some ice. Patient states since the fall he has had pain in his right wrist. Patient pain is located over the distal radius and ulna. No deformities noted patient has full range of motion fung with some discomfort. I do not appreciate any swelling his wrist is not warm to the touch. His left upper extremity is neurovascularly intact. Patient was evaluated just prior to arrival at [facility]. Work-up consisted of an x-ray which was negative for acute fractures radiologist impression arthritic changes. Patient states she has been taking [id number] Tylenol with no relief. Patient is requesting radiology results from [facility] and a splint. Review of Systems: Review of Systems: Constitutional: Denies fever or chills. [] Eyes: Denies change in visual acuity. [] HENT: Denies nasal congestion or sore throat. [] Respiratory: Denies cough or shortness of breath. [] Cardiovascular: Denies chest pain or edema. [] GI: Denies abdominal pain, nausea, vomiting, bloody stools or diarrhea. [] : Denies dysuria. [] Musculoskeletal: Denies back pain Positive joint pain. [] Integument: Denies rash. [] Neurologic: Denies headache, focal weakness or sensory changes. [] Endocrine: Denies polyuria or polydipsia. [] Lymphatic: Denies swollen glands. [] Psychiatric: Denies depression or anxiety. [] Heart Score: C/O Chest Pain: N/A Risk Factors: Risk Factors: DM, Current or recent (<one month) smoker, HTN, HLP, family history of CAD, obesity. Risk Scores: Score 0 - 3: 2.5% MACE over next 6 weeks - Discharge Home Score 4 - 6: 20.3% MACE over next 6 weeks - Admit for Clinical Observation Score 7 - 10: 72.7% MACE over next 6 weeks - Early Invasive Strategies Allergies: Allergies: Allergies Coded Allergies Type Severity Reaction Last Updated Verified cephalexin Allergy Intermediate Rash 04/29/19 Yes codeine Allergy Intermediate 04/29/19 Yes Physical Exam: PE: Constitutional: Well developed, well nourished, no acute distress, non-toxic appearance. [] HENT: Normocephalic, atraumatic, bilateral external ears normal, oropharynx moist, no oral exudates, nose normal. [] Eyes: PERRLA, EOMI, conjunctiva normal, no discharge. [] Neck: Normal range of motion, no tenderness, supple, no stridor. [] Cardiovascular:Heart rate regular rhythm, no murmur [] Lungs & Thorax: Bilateral breath sounds clear to auscultation [] Abdomen: Bowel sounds normal, soft, no tenderness, no masses, no pulsatile masses. [] Skin: Warm, dry, no erythema, no rash. [] Back: No tenderness, no CVA tenderness. [] Extremities: No tenderness, no cyanosis, no clubbing, ROM intact, no edema. [] Full range of motion of right wrist with some pain no swelling no erythema no deformity noted Neurologic: Alert and oriented X 3, normal motor function, normal sensory function, no focal deficits noted. [] Psychologic: Affect normal, judgement normal, mood normal. [] Current Patient Data: Vital Signs: Vital Signs Date Time Temp Pulse Resp B/P (MAP) Pulse Ox O2 Delivery O2 Flow Rate FiO2 10/11/21 00:40 98.7 80 22 92/68 (76) 98 Room Air 98.7 EKG: EKG: [] Radiology/Procedures: Radiology/Procedures: [] Course & Med Decision Making: Course & Med Decision Making Pertinent Labs and Imaging studies reviewed. (See chart for details) [] Wrist placed in a premade Velcro splint. Patient was referred to primary care physician he was also given follow-up information to orthopedics. Advised to take Tylenol ibuprofen as needed for pain. Dragon Disclaimer: Dragon Disclaimer: This electronic medical record was generated, in whole or in part, using a voice recognition dictation system. Departure Departure Impression: Primary Impression: Wrist pain Disposition: HOME / SELF CARE / HOMELESS Condition: STABLE Referrals: JOSE M ESCOBEDO (PCP) MADALYN RODRIGUEZ MD Patient Instructions: Wrist Pain NATALIA TORRES DO Oct 11, 2021 01:15
[2021-10-11] MEDS ORDERED: KETOROLAC 60 MG/2 ML VIAL. IM ONE (01:30)
== END 2021-10-11 02:15 | disposition home or self-care (01) ==
LOC: ER 00:29
DX: M25.531 Pain in right wrist (principal); F41.9 Anxiety disorder, unspecified; F31.9 Bipolar disorder, unspecified; E11.9 Type 2 diabetes mellitus without complications; K21.9 Gastro-esophageal reflux disease without esophagitis; E78.00 Pure hypercholesterolemia, unspecified; G43.909 Migraine, unspecified, not intractable, without status migrainosus; F17.200 Nicotine dependence, unspecified, uncomplicated; Z88.1 Allergy status to other antibiotic agents; Z88.5 Allergy status to narcotic agent
CPT/HCPCS: 29125; 96372; 99284; J1885

== ENCOUNTER 2021-11-10 20:39 | Emergency (ER) | payer BC, MEDICARE ==
[~2021-11-10] VITALS: Ht 167.6 cm; Wt 73.8 kg
[2021-11-10 20:40] VITALS: BP 126/81
--- NOTE | 2021-11-10 23:01 | PHYS DOC ---
Past Medical History Past Medical History: Anxiety, Arthritis, Bipolar, Depression, Diabetes-Type II, Fibromyalgia, GERD, High Cholesterol, Kidney Stone, Migraines, Pancreatitis, Prostatitis, Renal Disease, Sciatica Additional Past Medical Histor: Chandrakant Past Surgical History: Appendectomy, Cholecystectomy Additional Past Surgical Histo: right wrist surg, left knee surg with metal, left shoulder Smoking Status: Current Every Day Smoker Additional Information: >1ppd Alcohol Use: None Drug Use: None General Adult EDM: Chief Complaint: FLU SYMPTOM HPI: HPI: Patient is a 46 year old male who presents with 1 week history of sore throat and hoarseness. Patient was evaluated on Saturday at [facility] emergency department and given supportive treatment measures for pharyngitis. Patient denies fever, chills, ear pain, nasal congestion, cough, shortness of breath. Review of Systems: Review of Systems: Constitutional: See HPI Eyes: Denies change in visual acuity, visual field deficits or discharge HENT: See HPI Respiratory: Denies cough or shortness of breath Cardiovascular: Denies chest pain, palpitations or edema GI: Denies abdominal pain, nausea, vomiting, bloody stools or diarrhea : Denies dysuria or hematuria Musculoskeletal: Denies back pain or joint pain Integument: Denies rash or other skin lesion Neurologic: Denies headache, focal weakness or sensory changes Heart Score: C/O Chest Pain: No Current Medications: Current Medications Medications (Trade) Dose Ordered Sig/Justa Start Time Stop Time Status Last Admin Dose Admin Throat Lozenges (Cepacol Sore Throat Lozenge) 1 paddy PRN Q2HRS PRN 11/10/21 22:45 Allergies: Allergies: Allergies Coded Allergies Type Severity Reaction Last Updated Verified cephalexin Allergy Intermediate Rash 04/29/19 Yes codeine Allergy Intermediate 04/29/19 Yes morphine Allergy Intermediate 11/10/21 Yes Physical Exam: PE: Constitutional: Well developed, well nourished, no acute distress, non-toxic appearance. HENT: Normocephalic, atraumatic, bilateral external ears normal, oropharynx moist, pharyngeal erythema appreciated without tonsillar exudates, nose normal. Eyes: EOMI, conjunctiva normal, no discharge. Neck: Normal range of motion, no tenderness, supple, no stridor. Skin: Warm, dry, no erythema, no rash. Back: No step-off, no tenderness. Extremities: No cyanosis, no clubbing, ROM intact, no edema. Neurologic: Alert and oriented x4, normal motor function, normal sensory function, no focal deficits noted. Current Patient Data: Labs: Laboratory Tests Test 11/10/21 23:18 Influenza Type A Antigen Negative (NEGATIVE) Influenza Type B Antigen Negative (NEGATIVE) Strep A Rapid Negative Vital Signs: Vital Signs Date Time Temp Pulse Resp B/P (MAP) Pulse Ox O2 Delivery O2 Flow Rate FiO2 11/10/21 20:40 98.5 88 18 126/81 (96) 98 Room Air 98.5 Course & Med Decision Making: Course & Med Decision Making Pertinent Labs and Imaging studies reviewed. (See chart for details) [employer] Disclaimer: [employer] Disclaimer: This electronic medical record was generated, in whole or in part, using a voice recognition dictation system. Departure Departure Impression: Primary Impression: Viral pharyngitis Disposition: HOME / SELF CARE / HOMELESS Condition: STABLE Referrals: JOSE M ESCOBEDO (PCP) Patient Instructions: Viral and Bacterial Pharyngitis, [id number] Additional Instructions: Cepacol (benzocaine/menthol) throat lozenges can [employer] your throat discomfort. Sleep with a cool-mist humidifier by your bed at night. Continue alternating between ibuprofen and acetaminophen for pain. EMERGENCY DEPARTMENT GENERAL DISCHARGE INSTRUCTIONS Thank you for coming to [facility] Emergency Department (ED) today and trusting us with you care. We trust that you had a positive experience in our Emergency Department. If you wish to speak to the department management, you may call the director at . YOUR FOLLOW UP INSTRUCTIONS ARE FOLLOWS: 1. Follow up with your primary care doctor. If you do not have a primary doctor, please ask for a resource list of physicians or clinics that may be able to assist you with follow up care. 2. The emergency provider has interpreted your imaging studies, if any were ordered. The radiology cad specialist also reviewed them. If there is a change in the findings, you will be notified in 48 hours when at all possible. 3. If a lab test or culture has been done, your results will be reviewed and you will be notified if you need a change in treatment. 4. Follow instructions verbalized to you and refer to the printouts if needed. ADDITIONAL INSTRUCTIONS AND INFORMATION: 1. Your care today has been supervised by a physician who is specially trained in emergency care. Many problems require more than one evaluation for a co mplete diagnosis and treatment. We recommend that you schedule your follow up appointment as recommended to ensure complete treatment of you illness or injury. If you are unable to obtain follow up care and continue to have a problem, or if your condition worsens, we recommend that you return to the ED. 2. We are not able to safely determine your condition over the phone nor are we able to give sound medical advice over the phone. For these safety reasons, if you call for medical advice we will ask you to come to the ED for further evaluation. 3. If you have any questions regarding these discharge instructions please call the ED at . SAFETY INFORMATION: In the interest of safety, wellness, and injury prevention; we encourage you to wear your seat belt, if you smoke; quite smoking, and we encourage family to use a protective helmet for bicycling and other sporting events that present an increased risk for head injury. IF YOUR SYMPTOMS WORSEN OR NEW SYMPTOMS DEVELOP, OR YOU HAVE CONCERNS ABOUT YOUR CONDITION; OR IF YOUR CONDITION WORSENS WHILE YOU ARE WAITING FOR YOUR FOLLOW UP APPOINTMENT; EITHER CONTACT YOUR PRIMARY CARE DOCTOR, THE PHYSICIAN WHOSE NAME AND NUMBER YOU WERE GIVEN, OR RETURN TO THE ED IMMEDIATELY. FANI HARRIS Nov 10, 2021 23:01
[2021-11-10 23:39] LABS: INFLUENZA A PATIENT NEGATIVE (NEGATIVE); INFLUENZA B PATIENT NEGATIVE (NEGATIVE)
[2021-11-10] MEDS: BENZOCAINE/MENTHOL LOZENGE. PO PRN ×2 (23:47→23:48)
== END 2021-11-11 | disposition home or self-care (01) ==
LOC: ER 20:39
DX: J02.8 Acute pharyngitis due to other specified organisms (principal); B97.89 Other viral agents as the cause of diseases classified elsewhere; Z20.822 Contact with and (suspected) exposure to COVID-19; F31.9 Bipolar disorder, unspecified; E78.00 Pure hypercholesterolemia, unspecified; K21.9 Gastro-esophageal reflux disease without esophagitis; G43.909 Migraine, unspecified, not intractable, without status migrainosus; E11.22 Type 2 diabetes mellitus with diabetic chronic kidney disease; N18.9 Chronic kidney disease, unspecified; F17.200 Nicotine dependence, unspecified, uncomplicated; Z88.1 Allergy status to other antibiotic agents; Z88.5 Allergy status to narcotic agent
CPT/HCPCS: 87070; 87147; 87428; 87880; 99283